=== PATIENT | female | born 1945 | race Caucasian/White ===

== ENCOUNTER → 2022-06-22 14:21 | Outpatient (CLI) | payer MEDICARE, OTHER, SELFPAY ==
[2022-06-22 15:31] LABS: Add Manual Diff / Slide Review NO; Basophils Absolute Auto 0 /uL (0-100); Basophils Percent Auto 0.2 % (0-2); Eosinophils Absolute Auto 100 /uL (0-450); Eosinophils Percent Auto 1.6 % (2-4); Hematocrit 31.4 % (36-46); Lymphocytes Absolute Auto 1000 /uL (1100-4500); Lymphocytes Percent Auto 15.9 % (25-40); Mean Corpuscular Hemoglobin 34.4 PG (26-34); Mean Corpuscular Volume 98.3 fL (80-100); Monocytes Absolute Auto 400 /uL (0-900); Monocytes Percent Auto 7.2 % (3-14); Neutrophils Absolute Auto 4600 /uL (1500-7000); Neutrophils Percent Auto 75.1 % (50-75); Platelet Count 310 X10^3/uL (150-400); Red Blood Cell Count 3.19 X10^6/uL (4.0-5.2); Red Cell Distribution Width 14.4 % (11.6-14.8); White Blood Cell Count 6.1 X10^3/uL (4.5-11.0)
[2022-06-22 15:35] LABS: Hemoglobin A1C% w Est Avg Glu 4.8 % (4.0-6.0)
[2022-06-22 16:10] LABS: BUN Creatinine Ratio 26.3 (6-22); Blood Urea Nitrogen 21 mg/dL (7-17); Calcium 8.6 mg/dL (8.4-10.2); Carbon Dioxide 30 mmol/L (22-32); Chloride 101 mmol/L (98-107); Cholesterol 193 mg/dL (140-199); Estimated Glomerular Filt Rate > 60 mL/min (>60); Glucose 79 mg/dL (80-110); HDL Cholesterol 60 mg/dL (40-60); HEMOLYSIS < 15 (0-50); LDL Cholesterol Calculated 77 mg/dL (<100); Potassium 3.7 mmol/L (3.4-5.1); Sodium 139 mmol/L (137-145); Triglycerides 279 mg/dL (35-150)
== END ==
PROVIDERS: PCP Family Medicine; Referring Provider Family Medicine; Visit Provider Family Medicine
DX: E78.5 Hyperlipidemia, unspecified (principal); F17.200 Nicotine dependence, unspecified, uncomplicated; I10 Essential (primary) hypertension; Z13.6 Encounter for screening for cardiovascular disorders; Z13.1 Encounter for screening for diabetes mellitus
CPT/HCPCS: 36415; 80048; 80061; 83036; 85025

== ENCOUNTER → 2023-06-22 14:21 | Outpatient (CLI) | payer MEDICARE, OTHER, SELFPAY ==
--- NOTE | 2023-06-22 14:25 | DI.MG.S_ITS ---
BILATERAL DIGITAL SCREENING MAMMOGRAM 3D/2D WITH CAD: 06/22/2023 CLINICAL: Routine screening. Baseline exam. No prior exams were available for comparison. Both breasts are heterogeneously dense, which may obscure small masses (category c / 51-75% glandular tissue). Current study was also evaluated with a Computer Aided Detection (CAD) system. No significant masses, calcifications, or other findings are seen in either breast. IMPRESSION: NEGATIVE There is no mammographic evidence of malignancy. A 1 year screening mammogram is recommended. Based on the Tyrer Cuzick model (a risk assessment model) the patient's lifetime risk is 5.9% and her 10 year risk is 5.9%. According to the ACR, ACS, and NCCN guidelines, an annual breast MRI exam along with mammogram is recommended if the patient's lifetime risk is 20% or greater. This exam was interpreted at Station ID: [id number]. NOTE: For mammograms, a report in lay terms will be sent to the patient. Approximately 15% of breast malignancies will not be visualized mammographically. In the management of a palpable breast mass, a negative mammogram must not discourage biopsy of a clinically suspicious lesion. Electronically Signed By: Chetna nice/darlene:06/22/2023 16:47:53 letter sent: Normal Exam ACR BI-RADS Category 1: Negative 3341F
[2023-06-22 18:09] LABS: Hematocrit 33.3 % (36-46); Hemoglobin 11.4 g/dL (12.0-16.0); Mean Corpuscular HGB Conc 34.3 % (30-36); Mean Corpuscular Hemoglobin 33.9 PG (26-34); Mean Corpuscular Volume 98.8 fL (80-100); Platelet Count 151 X10^3/uL (150-400); Red Blood Cell Count 3.37 X10^6/uL (4.0-5.2); White Blood Cell Count 6.5 X10^3/uL (4.5-11.0)
[2023-06-22 18:27] LABS: HEMOLYSIS < 15 (0-50); Iron 80 ug/dL (37-170)
[2023-06-22 18:38] LABS: Percent Iron Saturation 49 % (15-50); Total Iron Binding Capacity 164 ug/dL (265-497); Transferrin 152 mg/dL (206-381)
[2023-06-22 19:04] LABS: Ferritin 265 ng/mL (11-264)
[2023-06-22 21:47] LABS: Neutrophils Absolute Manual 5330 /uL (3000-5900); Total Cells Counted 100
[2023-06-22 21:52] LABS: RBC Morphology Normal Morphology
== END ==
PROVIDERS: PCP Family Medicine; Referring Provider Family Medicine; Visit Provider Family Medicine
DX: Z12.31 Encounter for screening mammogram for malignant neoplasm of breast (principal); R92.333 Mammographic heterogeneous density, bilateral breasts; D64.9 Anemia, unspecified
CPT/HCPCS: 36415; 77063; 77067; 82728; 83540; 83550; 85025

== ENCOUNTER → 2024-02-18 08:27 | Outpatient (CLI) | payer MEDICARE, OTHER, SELFPAY ==
[2024-02-18 09:33] LABS: Hematocrit 34.5 % (36-46); Hemoglobin 11.8 g/dL (12.0-16.0); Mean Corpuscular HGB Conc 34.2 % (30-36); Mean Corpuscular Hemoglobin 34.4 PG (26-34); Mean Corpuscular Volume 100.4 fL (80-100); Platelet Count 138 X10^3/uL (150-400); Red Blood Cell Count 3.43 X10^6/uL (4.0-5.2); Red Cell Distribution Width 13.9 % (11.6-14.8); White Blood Cell Count 5.9 X10^3/uL (4.5-11.0)
[2024-02-18 10:35] LABS: Alanine Aminotransferase 17 IU/L (<35); Albumin 3.9 g/dL (3.5-5.0); Albumin Globulin Ratio 1.2 (1.0-2.8); Alkaline Phosphatase 92 U/L (38-126); Aspartate Aminotransferase 31 IU/L (14-36); BUN Creatinine Ratio 16.7 (6-22); Bilirubin Total 0.4 mg/dL (0.2-1.3); Blood Urea Nitrogen 15 mg/dL (7-17); Calcium 9.2 mg/dL (8.4-10.2); Carbon Dioxide 25 mmol/L (22-32); Chloride 104 mmol/L (98-107); Cholesterol 246 mg/dL (140-199); Estimated Glomerular Filt Rate > 60 mL/min (>60); Globulin 3.3 g/dL (1.7-4.1); Glucose 79 mg/dL (80-110); HDL Cholesterol 82 mg/dL (40-60); HEMOLYSIS < 15 (0-50); LDL Cholesterol Calculated 118 mg/dL (<100); Potassium 4.2 mmol/L (3.4-5.1); Sodium 137 mmol/L (137-145); Total Protein 7.2 g/dL (6.3-8.2); Triglycerides 228 mg/dL (35-150)
== END ==
LOC: LAB 08:29
PROVIDERS: PCP Family Medicine; Referring Provider Family Medicine; Visit Provider Family Medicine
DX: Z00.00 Encounter for general adult medical examination without abnormal findings (principal); D64.9 Anemia, unspecified; E78.5 Hyperlipidemia, unspecified; F17.200 Nicotine dependence, unspecified, uncomplicated; I10 Essential (primary) hypertension
CPT/HCPCS: 36415; 80053; 80061; 85027

== ENCOUNTER 2024-07-10 18:21 | Inpatient (IN) | payer MEDICARE, OTHER, SELFPAY ==
[2024-07-10] VITALS (15 sets, daily range): BP systolic 151–193; BP diastolic 45–88; PULSE 53–76; RESP 16–18; TEMP 35.9; O2SAT 92–99; BMI 19.3; BMI 17.9
--- NOTE | 2024-07-10 | DI.RAD.S_ITS ---
PROCEDURE: XR CHEST 1V INDICATIONS: GLF with hip pain TECHNIQUE: One view of the chest was acquired. COMPARISON: None. FINDINGS: Surgical changes and devices: None. Lungs and pleura: Lungs are clear. No pleural effusions or pneumothorax. Mediastinum: Mediastinal contours appear normal. Heart size is normal. Bones and chest wall: No suspicious bony lesions. Overlying soft tissues appear unremarkable. IMPRESSION: No acute cardiopulmonary abnormality is seen. Dictated by: Kieran Hurst M.D. on 07/10/2024 at 18:58 Approved by: Kieran Hurst M.D. on 07/10/2024 at 18:58
--- NOTE | 2024-07-10 18:31 | DI.RAD.S_ITS ---
PROCEDURE: XR HIP W PEL IF DONE RT 2V INDICATIONS: shortened/ externally rotated TECHNIQUE: 2 views of the hip were acquired. COMPARISON: None. FINDINGS: Bones: Transcervical versus intratrochanteric fracture of the right femur, with mild angulation. Soft tissues: No suspicious soft tissue calcifications or masses. IMPRESSION: Transcervical versus intratrochanteric fracture of the right femur, with mild angulation. Dictated by: Kieran Hurst M.D. on 07/10/2024 at 18:57 Approved by: Kieran Hurst M.D. on 07/10/2024 at 18:58
--- NOTE | 2024-07-10 18:59 | EKG_ITS ---
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
--- NOTE | 2024-07-10 19:02 | ED.FALL ---
HPI - Fall General Chief Complaint: Fall Stated Complaint: GLF, right hip pain Time Seen by Provider: 07/10/24 18:59 Source: patient and EMS Mode of arrival: EMS Limitations: no limitations History of Present Illness HPI Narrative: 78-year-old female history of hypertension, dyslipidemia, tobacco use who was getting her dog's food ready when she tripped and landed on her right hip patient has pain with shortening and external rotation. She denies hitting her head, states only pain is in her right hip. Denies any other injuries. Denies any chest pain or shortness of breath. No neck pain. No back pain. No nausea or vomiting. No other GI or urinary symptoms denies any numbness or tingling. She has had prior thumb surgery when it was caught off it was re-attached. She states she does smoke daily, drinks a glass of alcohol daily, no recreational drugs. Dr. Bourne as her primary care physician. Related Data Home Medications Medication Instructions Recorded Confirmed famotidine 20 mg tablet (Pepcid AC) 20 mg PO DAILY 05/18/22 06/26/24 ibuprofen-diphenhydramine citrate 1 cap PO BEDTIME 05/18/22 06/26/24 200 mg-38 mg tablet (Advil PM) atorvastatin 20 mg tablet 20 mg PO QPM cholesterol 06/26/24 06/26/24 Previous Rx's Medication Instructions Recorded metoprolol succinate 100 mg 100 mg PO BID blood pressure #180 11/15/23 tablet,extended release 24 hr tabs terazosin 2 mg capsule 2 mg PO DAILY blood pressure #90 12/29/23 caps amlodipine 10 mg tablet 10 mg PO DAILY blood pressure #90 05/02/24 tabs olmesartan 40 mg tablet 40 mg PO DAILY blood pressure #90 05/02/24 tabs Allergies Allergy/AdvReac Type Severity Reaction Status Date / Time No Known Drug Allergies Allergy Unverified 06/26/24 15:06 Review of Systems Review of Systems ROS Unobtainable: All systems reviewed & are unremarkable except as noted in HPI and below Patient History Medical History Encounter for initial annual wellness visit (AWV) in Medicare patient Normocytic anemia Hyperlipidemia Tobacco dependence Benign essential HTN Measles Cataracts, bilateral (~2015) Family History Father Cancer Social History Smoking Status: Current every day smoker Smoking Status: Current every day smoker tobacco type: cigarettes Alcohol type: wine Exam Narrative Exam Narrative: GENERAL: Alert and oriented x three, elderly female in mild distress HEENT: Head normocephalic, atraumatic, EOMI, pupils reactive, face symmetric, moist mucous membranes NECK: Supple, full range of motion, no cervical vertebral tenderness. CARDIOVASCULAR: Regular rate and rhythm without murmurs, rubs or gallops. RESPIRATORY: Breath sounds equal bilaterally, no wheezes rales or rhonchi. ABDOMEN: Soft, nontender. Normoactive bowel sounds all 4 quadrants. No guarding or rebound, rigidity, no mass : No CVA tenderness EXTREMITIES: Patient has tenderness over the right hip with external rotation and shortening, no other bony tenderness of the right lower extremity. 2+ pulses bilaterally. Sensation to bilateral lower extremities. No clubbing or edema. Neurovascularly intact NEUROLOGICAL: Cranial nerves II through XII grossly intact. Moving all extremities SKIN: Warm, dry, no petechiae, no rashes or lesions. Initial Vital Signs Initial Vital Signs: Vital Signs Pulse Rate 68 07/10/24 18:25 Pulse Oximetry 96 07/10/24 18:25 Course Orders Ordered: ED Orders 07/10/24 18:31 XR hip w pel if done RT 2V Stat 07/10/24 18:59 EKG-12 Lead Stat 07/10/24 19:25 Consult to Orthopedic Surgery Stat 07/10/24 19:36 CBC Auto Diff [Complete Blood Count AUTO DIFF] Stat CMP [Comprehensive Metabolic Panel] Stat Prothrombin Time INR Stat 07/10/24 19:48 Type and Screen Stat Hydrocodone Bitart/Acetaminophen (Hydrocodone/Acet 5/325 Tablet) 1 tab PO Q6HR PRN PRN Reason: Pain, Moderate (4-6) Dextrose/Sodium Chloride (Dextrose 5%-0.9% Ns) 1,000 mls @ 75 mls/hr IV CONT LILIANA Discontinued Medications Hydromorphone HCl (Hydromorphone 1 Mg Inj) 1 mg IV NOW ONE Stop: 07/10/24 20:35 Last Admin: 07/10/24 20:38 Dose: 1 mg Documented By: ABBI Morphine Sulfate (Morphine 4 Mg/Ml Inj) 4 mg IV NOW ONE Stop: 07/10/24 19:26 Last Admin: 07/10/24 19:35 Dose: 4 mg Documented By: ABBI Vital Signs Vital signs: Vital Signs - 8 hr 07/10/24 18:25 07/10/24 18:26 07/10/24 18:27 Pulse Rate 68 60 61 Respiratory Rate 18 Blood Pressure 193/77 H Pulse Oximetry 96 99 99 Oxygen Delivery Method Room Air 07/10/24 18:27 07/10/24 18:30 07/10/24 18:31 Pulse Rate 58 L 58 L Respiratory Rate Blood Pressure 193/77 H Pulse Oximetry 99 99 Oxygen Delivery Method 07/10/24 18:31 07/10/24 19:00 07/10/24 19:30 Pulse Rate 60 62 Respiratory Rate 16 Blood Pressure 191/88 H Pulse Oximetry 98 97 Oxygen Delivery Method 07/10/24 20:00 07/10/24 20:30 07/10/24 21:00 Pulse Rate 62 68 62 Respiratory Rate Blood Pressure Pulse Oximetry 99 94 92 Oxygen Delivery Method MDM - Fall Lab Data 07/10/24 19:36 07/10/24 19:36 Labs: Lab Results 07/10/24 07/10/24 Range/Units 19:36 19:48 WBC 9.8 (4.5-11.0) X10^3/uL RBC 3.54 L (4.0-5.2) X10^6/uL Hgb 11.3 L (12.0-16.0) g/dL Hct 33.8 L (36-46) % MCV 95.3 (80-100) fL MCH 31.9 (26-34) PG MCHC 33.5 (30-36) % RDW 15.4 H (11.6-14.8) % Plt Count 170 (150-400) X10^3/uL Neut % (Auto) 84.7 H (50-75) % Lymph % (Auto) 7.1 L (25-40) % [place] % (Auto) 6.4 (3-14) % Eos % (Auto) 0.9 L (2-4) % Baso % (Auto) 0.9 (0-2) % Neut # (Auto) 8300 H (2711-9901) /uL Lymph # (Auto) 700 L (1883-7098) /uL [place] # (Auto) 600 (0-900) /uL Eos # (Auto) 100 (0-450) /uL Baso # (Auto) 100 (0-100) /uL PT 11.5 (9.4-12.5) SECONDS INR 1.0 (0.9-1.3) Sodium 136 L (137-145) mmol/L Potassium 3.7 (3.4-5.1) mmol/L Chloride 103 (98-107) mmol/L Carbon Dioxide 27 (22-32) mmol/L BUN 16 (7-17) mg/dL Creatinine 0.91 (0.52-1.04) mg/dL Estimated GFR > 60 (>60) mL/min BUN/Creatinine Ratio 17.6 (6-22) Glucose 109 (80-110) mg/dL Calcium 9.3 (8.4-10.2) mg/dL Total Bilirubin 0.6 (0.2-1.3) mg/dL AST 43 H (14-36) IU/L ALT 28 (<35) IU/L Alkaline Phosphatase 105 (38-126) U/L Total Protein 7.8 (6.3-8.2) g/dL Albumin 4.2 (3.5-5.0) g/dL Globulin 3.6 (1.7-4.1) g/dL Albumin/Globulin Ratio 1.2 (1.0-2.8) Blood Type A Negative Antibody Screen Negative ECG Data Attestation: I personally reviewed and interpreted this ECG as follows: Interpretation: Sinus rhythm rate of 71 IA 170 QRS is [address] elevation depression. [facility] Narrative Medical decision making narrative: 78-year-old female with reported mechanical ground level fall. Patient has fracture of her right hip. Denies hitting her head or any headache, neck or back pain. Patient has been hypertensive this evening. Hip x-ray shows transcervical versus intertrochanteric fracture of the right femur Chest x-ray with mild angulation shows no acute cardiopulmonary change. Labs white count of 9.8 hemoglobin 11.3 appears consistent with priors last month. Platelets are 170. INR is 1, sodium is 136 electrolytes are otherwise appropriate BUN creatinine are normal AST is 43 ALT bilirubin and alk-phos are normal. EKG shows no acute change. Spoke with Dr. Verduzco, orthopedic surgery. Plan for surgical repair tomorrow, NPO tonight asked for admission to the hospitalist. Spoke with tele hospitalist Dr. Harvey, accepts for inpatient asked that we place patient on D5 NS at 75 mL/hour for maintenance, [place] q.6 hours PRN so she can have a dose this evening prior to being NPO after midnight. Discharge Plan Departure Patient Disposition: Admitted As Inpatient Clinical Impression: Closed hip fracture Admit Date/Time: 07/10/24 21:22 Admit Provider: Yara Harvey
[2024-07-10] MEDS: MORPHINE 4 MG/ML INJ IV (19:35)
[2024-07-10 19:47] LABS: Add Manual Diff / Slide Review NO; Basophils Absolute Auto 100 /uL (0-100); Basophils Percent Auto 0.9 % (0-2); Eosinophils Absolute Auto 100 /uL (0-450); Eosinophils Percent Auto 0.9 % (2-4); Hematocrit 33.8 % (36-46); Hemoglobin 11.3 g/dL (12.0-16.0); Lymphocytes Absolute Auto 700 /uL (1100-4500); Lymphocytes Percent Auto 7.1 % (25-40); Mean Corpuscular HGB Conc 33.5 % (30-36); Mean Corpuscular Hemoglobin 31.9 PG (26-34); Mean Corpuscular Volume 95.3 fL (80-100); Monocytes Absolute Auto 600 /uL (0-900); Monocytes Percent Auto 6.4 % (3-14); Neutrophils Absolute Auto 8300 /uL (1500-7000); Neutrophils Percent Auto 84.7 % (50-75); Platelet Count 170 X10^3/uL (150-400); Red Blood Cell Count 3.54 X10^6/uL (4.0-5.2); Red Cell Distribution Width 15.4 % (11.6-14.8); White Blood Cell Count 9.8 X10^3/uL (4.5-11.0)
[2024-07-10 19:54] LABS: Prothrombin Time 11.5 SECONDS (9.4-12.5)
[2024-07-10 19:57] LABS: Alanine Aminotransferase 28 IU/L (<35); Albumin 4.2 g/dL (3.5-5.0); Albumin Globulin Ratio 1.2 (1.0-2.8); Alkaline Phosphatase 105 U/L (38-126); Aspartate Aminotransferase 43 IU/L (14-36); BUN Creatinine Ratio 17.6 (6-22); Bilirubin Total 0.6 mg/dL (0.2-1.3); Blood Urea Nitrogen 16 mg/dL (7-17); Calcium 9.3 mg/dL (8.4-10.2); Carbon Dioxide 27 mmol/L (22-32); Chloride 103 mmol/L (98-107); Estimated Glomerular Filt Rate > 60 mL/min (>60); Globulin 3.6 g/dL (1.7-4.1); Glucose 109 mg/dL (80-110); HEMOLYSIS < 15 (0-50); Potassium 3.7 mmol/L (3.4-5.1); Sodium 136 mmol/L (137-145); Total Protein 7.8 g/dL (6.3-8.2)
[2024-07-10] MEDS: HYDROMORPHONE 1 MG INJ IV (20:38)
--- NOTE | 2024-07-10 22:08 | ED.FALL ---
HPI - Fall General Chief Complaint: Fall Stated Complaint: GLF, right hip pain Time Seen by Provider: 07/10/24 18:59 Source: patient and EMS Mode of arrival: EMS Limitations: no limitations History of Present Illness HPI Narrative: 78 y/o F, with h/o HTN, HLD, GERD, was in her usual state of health, not on bloodthinners, had a fall today , while she She fell on her R side, did not hit her head, and remained conscious through out. Noted R hip pain and unable to bear wt on her R hip. Denies CP, SOB, Abd Pain, Dysuria, F/C, cough, light headedness or syncope. In ED, had SBP up at 193, rest of Vitals were stable Dr Verduzco / Ortho was consulted per ED Provider, and plan is NPO after mn, for surgery on R hip uin the morning. Pt recd Fentanyl enroute, and in ED one dose of Morphine and one dose of IV dilaudid. She was referred to Hospitalist team for admission. Related Data Home Medications Medication Instructions Recorded Confirmed atorvastatin 40 mg tablet 40 mg PO DAILY 07/10/24 07/10/24 olmesartan 40 mg tablet 40 mg PO DAILY blood pressure 07/10/24 07/10/24 Previous Rx's Medication Instructions Recorded metoprolol succinate 100 mg 100 mg PO BID blood pressure #180 11/15/23 tablet,extended release 24 hr tabs terazosin 2 mg capsule 2 mg PO DAILY blood pressure #90 12/29/23 caps amlodipine 10 mg tablet 10 mg PO DAILY blood pressure #90 05/02/24 tabs Allergies Allergy/AdvReac Type Severity Reaction Status Date / Time No Known Drug Allergies Allergy Unverified 06/26/24 15:06 Review of Systems Review of Systems ROS Unobtainable: All systems reviewed & are unremarkable except as noted in HPI and below Patient History Medical History Encounter for initial annual wellness visit (AWV) in Medicare patient Normocytic anemia Hyperlipidemia Tobacco dependence Benign essential HTN Measles Cataracts, bilateral (~2015) Family History Father Cancer Social History Smoking Status: Current every day smoker Smoking Status: Current every day smoker tobacco type: cigarettes Alcohol type: wine Exam Initial Vital Signs Initial Vital Signs: Vital Signs Pulse Rate 68 07/10/24 18:25 Pulse Oximetry 96 07/10/24 18:25 Course Orders Ordered: ED Orders 07/10/24 18:31 XR hip w pel if done RT 2V Stat 07/10/24 18:59 EKG-12 Lead Stat 07/10/24 19:25 Consult to Orthopedic Surgery Stat 07/10/24 19:36 CBC Auto Diff [Complete Blood Count AUTO DIFF] Stat CMP [Comprehensive Metabolic Panel] Stat Prothrombin Time INR Stat 07/10/24 19:48 Type and Screen Stat Acetaminophen (Acetaminophen 325 Mg Tablet) 650 mg PO Q6H PRN PRN Reason: Fever/Mild Pain (1-3) Hydrocodone Bitart/Acetaminophen (Hydrocodone/Acet 5/325 Tablet) 1 tab PO Q6HR PRN PRN Reason: Pain, Moderate (4-6) Atorvastatin Calcium (Atorvastatin 20 Mg Tablet) 20 mg PO QPM LILIANA Famotidine (Famotidine 20 Mg Tablet) 20 mg PO DAILY LILIANA Hydromorphone HCl (Hydromorphone 0.5 Mg Inj) 0.5 mg IV Q3H PRN PRN Reason: Pain, Severe (7-10) Dextrose/Sodium Chloride (Dextrose 5%-0.9% Ns) 1,000 mls @ 75 mls/hr IV CONT LILIANA Metoprolol Succinate (Metoprolol Er 50 Mg Tablet) 100 mg PO DAILY [facility] Naloxone HCl (Naloxone 0.4 Mg/Ml Vial) 0.2 mg IV Q2MIN PRN PRN Reason: Opiate Reversal Ondansetron HCl (Ondansetron 4 Mg/2 Ml Inj) 4 mg IV Q4HR [facility] Discontinued Medications Hydromorphone HCl (Hydromorphone 1 Mg Inj) 1 mg IV NOW ONE Stop: 07/10/24 20:35 Last Admin: 07/10/24 20:38 Dose: 1 mg Documented By: ABBI Morphine Sulfate (Morphine 4 Mg/Ml Inj) 4 mg IV NOW ONE Stop: 07/10/24 19:26 Last Admin: 07/10/24 19:35 Dose: 4 mg Documented By: ABBI Vital Signs Vital signs: Vital Signs - 8 hr 07/10/24 18:25 07/10/24 18:26 07/10/24 18:27 Pulse Rate 68 60 61 Respiratory Rate 18 Blood Pressure 193/77 H Pulse Oximetry 96 99 99 Oxygen Delivery Method Room Air 07/10/24 18:27 07/10/24 18:30 07/10/24 18:31 Pulse Rate 58 L 58 L Respiratory Rate Blood Pressure 193/77 H Pulse Oximetry 99 99 Oxygen Delivery Method 07/10/24 18:31 07/10/24 19:00 07/10/24 19:30 Pulse Rate 60 62 Respiratory Rate 16 Blood Pressure 191/88 H Pulse Oximetry 98 97 Oxygen Delivery Method 07/10/24 20:00 07/10/24 20:30 07/10/24 21:00 Pulse Rate 62 68 62 Respiratory Rate Blood Pressure Pulse Oximetry 99 94 92 Oxygen Delivery Method MDM - Fall Lab Data 07/10/24 19:36 07/10/24 19:36 Labs: Lab Results 07/10/24 07/10/24 Range/Units 19:36 19:48 WBC 9.8 (4.5-11.0) X10^3/uL RBC 3.54 L (4.0-5.2) X10^6/uL Hgb 11.3 L (12.0-16.0) g/dL Hct 33.8 L (36-46) % MCV 95.3 (80-100) fL MCH 31.9 (26-34) PG MCHC 33.5 (30-36) % RDW 15.4 H (11.6-14.8) % Plt Count 170 (150-400) X10^3/uL Neut % (Auto) 84.7 H (50-75) % Lymph % (Auto) 7.1 L (25-40) % [place] % (Auto) 6.4 (3-14) % Eos % (Auto) 0.9 L (2-4) % Baso % (Auto) 0.9 (0-2) % Neut # (Auto) 8300 H (5278-2034) /uL Lymph # (Auto) 700 L (3353-3042) /uL [place] # (Auto) 600 (0-900) /uL Eos # (Auto) 100 (0-450) /uL Baso # (Auto) 100 (0-100) /uL PT 11.5 (9.4-12.5) SECONDS INR 1.0 (0.9-1.3) Sodium 136 L (137-145) mmol/L Potassium 3.7 (3.4-5.1) mmol/L Chloride 103 (98-107) mmol/L Carbon Dioxide 27 (22-32) mmol/L BUN 16 (7-17) mg/dL Creatinine 0.91 (0.52-1.04) mg/dL Estimated GFR > 60 (>60) mL/min BUN/Creatinine Ratio 17.6 (6-22) Glucose 109 (80-110) mg/dL Calcium 9.3 (8.4-10.2) mg/dL Total Bilirubin 0.6 (0.2-1.3) mg/dL AST 43 H (14-36) IU/L ALT 28 (<35) IU/L Alkaline Phosphatase 105 (38-126) U/L Total Protein 7.8 (6.3-8.2) g/dL Albumin 4.2 (3.5-5.0) g/dL Globulin 3.6 (1.7-4.1) g/dL Albumin/Globulin Ratio 1.2 (1.0-2.8) Blood Type A Negative Antibody Screen Negative Discharge Plan Departure Patient Disposition: Admitted As Inpatient Clinical Impression: Closed hip fracture
[2024-07-10] MEDS: HYDROMORPHONE 0.5 MG INJ IV (22:24)
[2024-07-10] MEDS: DEXTROSE 5%-0.9% NS 1,000 ML 75 ML IV (22:41)
--- NOTE | 2024-07-10 22:45 | PM.HP.1 ---
History of Present Illness History of Present Illness Date Patient Seen: 07/10/24 Date of Onset of Symptoms: 07/10/24 Chief complaint: GLF, right hip pain Narrative: 78 y/o F, with h/o HTN, HLD, GERD, was in her usual state of health, not on blood thinners, had a fall today , this afternoon, after she had fed her dog, she was trying to reach the recycling bin,m and she tripped on the kitchen mat by the sink. She fell on her R side, did not hit her head, and remained conscious through out. Noted R hip pain and unable to bear wt on her R hip. Denies CP, SOB, Abd Pain, Dysuria, F/C, cough, light headedness or syncope. Denies h/o RI, Stroke, CHF, DM or PE Her son with whom pt has been staying , called EMS, and pt transported to ED. In ED, had SBP up at 193, rest of Vitals were stable R Hip XR: Trans cervical vs Intratrochanteric fracture of R femur with mild angulation Labs indicate chronic anemia HH 11.3/33.8 Rest of lab unremarkable Dr Verduzco / Ortho was consulted per ED Provider, and plan is NPO after mn, for surgery on R hip uin the morning. Pt recd Fentanyl enroute, and in ED one dose of Morphine and one dose of IV dilaudid. She was referred to Hospitalist team for admission. [facility] Medical History Uncontrolled hypertension Encounter for initial annual wellness visit (AWV) in Medicare patient Normocytic anemia Hyperlipidemia Tobacco dependence Benign essential HTN Measles Cataracts, bilateral (~2015) Family History Father Cancer Social History household members: spouse Smoking Status: Current every day smoker alcohol intake: current Meds Home Medications and Allergies Home Medications Medication Instructions Recorded Confirmed Type metoprolol succinate 100 mg 100 mg PO BID blood pressure #180 11/15/23 07/10/24 Rx tablet,extended release 24 hr tabs terazosin 2 mg capsule 2 mg PO DAILY blood pressure #90 12/29/23 07/10/24 Rx caps amlodipine 10 mg tablet 10 mg PO DAILY blood pressure #90 05/02/24 07/10/24 Rx tabs atorvastatin 40 mg tablet 40 mg PO DAILY 07/10/24 07/10/24 History olmesartan 40 mg tablet 40 mg PO DAILY blood pressure 07/10/24 07/10/24 History Allergies Allergy/AdvReac Type Severity Reaction Status Date / Time No Known Drug Allergies Allergy Unverified 06/26/24 15:06 Review of Systems Review of Systems ROS: Yes All systems reviewed with the patient and are negative except as otherwise documented Exam Vital Signs (past 8 hours): - 07/10/24 18:25 07/10/24 18:26 07/10/24 18:27 Temperature Pulse Rate 68 60 61 Respiratory Rate 18 Blood Pressure 193/77 H Pulse Oximetry 96 99 99 Oxygen Delivery Method Room Air Oxygen Flow Rate 07/10/24 18:27 07/10/24 18:30 07/10/24 18:31 Temperature Pulse Rate 58 L 58 L Respiratory Rate Blood Pressure 193/77 H Pulse Oximetry 99 99 Oxygen Delivery Method Oxygen Flow Rate 07/10/24 18:31 07/10/24 19:00 07/10/24 19:30 Temperature Pulse Rate 60 62 Respiratory Rate 16 Blood Pressure 191/88 H Pulse Oximetry 98 97 Oxygen Delivery Method Oxygen Flow Rate 07/10/24 20:00 07/10/24 20:30 07/10/24 21:00 Temperature Pulse Rate 62 68 62 Respiratory Rate Blood Pressure Pulse Oximetry 99 94 92 Oxygen Delivery Method Oxygen Flow Rate 07/10/24 21:30 07/10/24 22:00 Temperature 96.7 F L Pulse Rate 64 62 Respiratory Rate 16 18 Blood Pressure 158/70 H 163/60 H Pulse Oximetry 92 96 Oxygen Delivery Method Oxygen Flow Rate 0 Oxygen Delivery Method Room Air Oxygen Flow Rate 0 Narrative Exam Narrative: Patient is laying in bed, in no acute distress. Has some R hip pain jael with movement of R hip joint. HEENT: AT, NC EOMI, PERRL, non icteric sclerae, Conjuntivae are WNL Neck : supple, no TMG, no adenopathy Chest : CTA , BS Equal bilat, normal resp effort, no W/Rales or Rhonchi. Heart: RRR , no M/G/R Abd: soft , NT, ND , No HSM,. BS present and WNL Ext: no edema, or cyanosis. pp 2 + bilat symmetric. no calf tyenderness. RLE is shortened. Ski warm and dry, n: no rash, no bruising Neuro: A and O x 4, non focal Psyche: Pleasant, cooperative, Mood is WNL Objective Labs 07/10/24 19:36 07/10/24 19:36 Labs: Laboratory Results - last 24 hr 07/10/24 07/10/24 19:36 19:48 WBC 9.8 RBC 3.54 L Hgb 11.3 L Hct 33.8 L MCV 95.3 MCH 31.9 MCHC 33.5 RDW 15.4 H Plt Count 170 Neut % (Auto) 84.7 H Lymph % (Auto) 7.1 L [place] % (Auto) 6.4 Eos % (Auto) 0.9 L Baso % (Auto) 0.9 Neut # (Auto) 8300 H Lymph # (Auto) 700 L [place] # (Auto) 600 Eos # (Auto) 100 Baso # (Auto) 100 PT 11.5 INR 1.0 Sodium 136 L Potassium 3.7 Chloride 103 Carbon Dioxide 27 BUN 16 Creatinine 0.91 Estimated GFR > 60 BUN/Creatinine Ratio 17.6 Glucose 109 Calcium 9.3 Total Bilirubin 0.6 AST 43 H ALT 28 Alkaline Phosphatase 105 Total Protein 7.8 Albumin 4.2 Globulin 3.6 Albumin/Globulin Ratio 1.2 Blood Type A Negative Antibody Screen Negative Assessment & Plan Assessment and plan (1) Closed hip fracture: Problem details: Has Surgery in the morning , no pharmacologic VTE px Qualifiers: Encounter type: initial encounter Laterality: right Qualified Code(s): S72.001A - Fracture of unspecified part of neck of right femur, initial encounter for closed fracture Status: Acute (2) Uncontrolled hypertension: Problem details: Has h/o HTN and takes anti HTN meds at home Increase in SBP likely sec to R hip pain Shall continue Metoprolol 100 mg BID, give pm dose now Hold ARB ( as R hip Surgery in the morning) avoid Intra op[erative and post op Hypotension Status: Acute (3) Right femoral fracture: Problem details: GLF resulting in R femoral Fracture Transcervical vs Intertrochanteric Fracture of R femur, with mild angulation Ortho Dr Verduzco Consulted 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 NPO after mn as advised per Ortho [place] Pain control [place] q 4 h prn Dilaudid 0.5 mg IV q 3 hrs prn Keep O2 sats > 93% SCDS Ho;ld Pharmacologic DVT px given surgery in the morning PT / OT consult Qualifiers: Encounter type: initial encounter Femur location: intertrochanteric Fracture alignment: nondisplaced Fracture type: closed Qualified Code(s): S72.144A - Nondisplaced intertrochanteric fracture of right femur, initial encounter for closed fracture Status: Acute (4) Hyperlipidemia: Problem details: Hsas h/o HLD Takes Atorvastatin 40 mg po daily, continue same Qualifiers: Hyperlipidemia type: mixed hyperlipidemia Qualified Code(s): E78.2 - Mixed hyperlipidemia Status: Acute Time-Based Coding :: [TOTAL MINUTES] spent with patient and on the chart (including review of chart, obtaining history, exam, reviewing outside data, placing orders, documenting exam and treatment plan, and counseling patient) on [DATE]. Quality VTE Deep Vein Thrombosis/Pulmonary Embolism Present on Admission: No
[2024-07-10 23:17] LABS: Appearance Urine UA CLOUDY; Bilirubin Urine UA NEGATIVE (NEGATIVE); Color Urine UA YELLOW; Glucose Urine UA NEGATIVE (Negative); Ketones Urine UA NEGATIVE (NEGATIVE); Leukocyte Esterase Urine UA NEGATIVE (NEGATIVE); Nitrite Urine UA POSITIVE (Negative); Occult Blood Urine UA NEGATIVE (Negative); Protein Urine UA TRACE (Negative); Specific Gravity Urine UA 1.015 (1.000-1.035); Urobilinogen Urine UA 0.2 E.U./dL (0.2)
[2024-07-10 23:35] LABS: Bacteria Urine Many (>30); Culture Indicated Urine Specimen Cultured; RBC Urine 0-1/HPF (0-5/HPF); Squamous Epithelial Cell Urine 0-1 /HPF (0-5/HPF); Urine Volume 10mL (spun); WBC Urine 5-10/HPF (0-5/HPF)
[2024-07-10] MEDS: METOPROLOL ER 50 MG TABLET 100 MG PO (23:53)
[2024-07-10] MEDS: ATORVASTATIN 20 MG TABLET 40 MG PO (23:55)
[2024-07-11] VITALS (11 sets, daily range): BP systolic 139–168; BP diastolic 62–78; PULSE 54–77; RESP 15–18; TEMP 35.7–36.2; O2SAT 92–97
[2024-07-11] MEDS: HYDROMORPHONE 0.5 MG INJ IV ×2 (03:54→07:37)
[2024-07-11 05:49] LABS: Add Manual Diff / Slide Review NO; Basophils Absolute Auto 0 /uL (0-100); Basophils Percent Auto 0.5 % (0-2); Eosinophils Absolute Auto 100 /uL (0-450); Eosinophils Percent Auto 1.4 % (2-4); Hematocrit 32.6 % (36-46); Lymphocytes Absolute Auto 800 /uL (1100-4500); Lymphocytes Percent Auto 11.1 % (25-40); Mean Corpuscular HGB Conc 33.6 % (30-36); Mean Corpuscular Hemoglobin 32.1 PG (26-34); Mean Corpuscular Volume 95.5 fL (80-100); Monocytes Absolute Auto 700 /uL (0-900); Monocytes Percent Auto 9.3 % (3-14); Neutrophils Absolute Auto 5800 /uL (1500-7000); Neutrophils Percent Auto 77.7 % (50-75); Platelet Count 151 X10^3/uL (150-400); Red Blood Cell Count 3.41 X10^6/uL (4.0-5.2); Red Cell Distribution Width 15.2 % (11.6-14.8); White Blood Cell Count 7.4 X10^3/uL (4.5-11.0)
[2024-07-11 06:02] LABS: BUN Creatinine Ratio 15.1 (6-22); Blood Urea Nitrogen 11 mg/dL (7-17); Carbon Dioxide 29 mmol/L (22-32); Chloride 103 mmol/L (98-107); Estimated Glomerular Filt Rate > 60 mL/min (>60); Glucose 147 mg/dL (80-110); HEMOLYSIS < 15 (0-50); Potassium 3.9 mmol/L (3.4-5.1); Sodium 138 mmol/L (137-145)
--- NOTE | 2024-07-11 07:02 | P.PN_ITS ---
Subjective Subjective Interval history: From night doctor: 78 y/o F, with h/o HTN, HLD, GERD, was in her usual state of health, not on blood thinners, had a fall today , this afternoon, after she had fed her dog, she was trying to reach the recycling bin,m and she tripped on the kitchen mat by the sink. She fell on her R side, did not hit her head, and remained conscious through out. Noted R hip pain and unable to bear wt on her R hip. Denies CP, SOB, Abd Pain, Dysuria, F/C, cough, light headedness or syncope. Denies h/o OH, Stroke, CHF, DM or PE Her son with whom pt has been staying , called EMS, and pt transported to ED. In ED, had SBP up at 193, rest of Vitals were stable R Hip XR: Trans cervical vs Intratrochanteric fracture of R femur with mild angulation Labs indicate chronic anemia HH 11.3/33.8 Rest of lab unremarkable Dr Verduzco / Ortho was consulted per ED Provider, and plan is NPO after mn, for surgery on R hip uin the morning. Pt recd Fentanyl enroute, and in ED one dose of Morphine and one dose of IV dilaudid. She was referred to Hospitalist team for admission. S: She was good pain control. She was placed on oxygen but denies dyspnea, or recent cough. She also denies urinary symptoms including dysuria. She lives locally with her . Her surgery has been delayed till morning, she was not given a diet. Exam Vital Signs (past 8 hours): - 07/10/24 23:31 07/10/24 23:53 07/11/24 00:00 Temperature 96.7 F L Pulse Rate 53 L 76 73 Respiratory Rate 18 Blood Pressure 151/45 H 151/66 H Pulse Oximetry 95 94 Oxygen Delivery Method Nasal Cannula Oxygen Flow Rate 1 1 Fraction of Inspired Oxygen 24 07/11/24 01:14 07/11/24 04:00 07/11/24 05:46 Temperature 96.3 F L Pulse Rate 77 64 Respiratory Rate 18 Blood Pressure 149/78 H Pulse Oximetry 95 95 Oxygen Delivery Method Nasal Cannula Oxygen Flow Rate 1 1 Fraction of Inspired Oxygen Fraction of Inspired Oxygen 24 SaO2/FiO2 Ratio 395 Oxygen Delivery Method Nasal Cannula Oxygen Flow Rate 1 Narrative Exam Narrative: NAD, alert and oriented. Fluent speech. Lungs are clear, normal rate and effort. Heart is regular, no murmur gallop or rub. Abdomen is soft, non distended. Extremities are free of edema. Objective ECG Impression: Normal sinus rhythm Imaging Hip X-ray: : Radiologist's impression: Hip x-ray shows transcervical versus intertrochanteric fracture of the right femur Chest x-ray: Radiologist's impression: Chest x-ray with mild angulation shows no acute cardiopulmonary change. Labs 07/11/24 05:15 07/11/24 05:15 Labs: Laboratory Results - last 24 hr 07/10/24 07/10/24 07/10/24 19:36 19:46 19:48 WBC 9.8 RBC 3.54 L Hgb 11.3 L Hct 33.8 L MCV 95.3 MCH 31.9 MCHC 33.5 RDW 15.4 H Plt Count 170 Neut % (Auto) 84.7 H Lymph % (Auto) 7.1 L [place] % (Auto) 6.4 Eos % (Auto) 0.9 L Baso % (Auto) 0.9 Neut # (Auto) 8300 H Lymph # (Auto) 700 L [place] # (Auto) 600 Eos # (Auto) 100 Baso # (Auto) 100 PT 11.5 INR 1.0 Sodium 136 L Potassium 3.7 Chloride 103 Carbon Dioxide 27 BUN 16 Creatinine 0.91 Estimated GFR > 60 BUN/Creatinine Ratio 17.6 Glucose 109 Calcium 9.3 Total Bilirubin 0.6 AST 43 H ALT 28 Alkaline Phosphatase 105 Total Protein 7.8 Albumin 4.2 Globulin 3.6 Albumin/Globulin Ratio 1.2 Urine Color Yellow Urine Appearance Cloudy Urine pH 6.0 Ur Specific [place] 1.015 Urine Protein Trace H Urine Glucose (UA) Negative Urine Ketones Negative Urine Occult Blood Negative Urine Nitrate Positive H Urine Bilirubin Negative Urine Urobilinogen 0.2 Ur Leukocyte Esterase Negative Urine RBC 0-1/hpf Urine WBC 5-10/hpf H Ur Squamous Epith Cells 0-1 /hpf Urine Bacteria Many (>30) H Ur Culture Indicated? Specimen cultured Vol Urine Centrifuged 10ml (spun) Blood Type A Negative Antibody Screen Negative 07/11/24 05:15 WBC 7.4 RBC 3.41 L Hgb 11.0 L Hct 32.6 L MCV 95.5 MCH 32.1 MCHC 33.6 RDW 15.2 H Plt Count 151 Neut % (Auto) 77.7 H Lymph % (Auto) 11.1 L [place] % (Auto) 9.3 Eos % (Auto) 1.4 L Baso % (Auto) 0.5 Neut # (Auto) 5800 Lymph # (Auto) 800 L [place] # (Auto) 700 Eos # (Auto) 100 Baso # (Auto) 0 PT INR Sodium 138 Potassium 3.9 Chloride 103 Carbon Dioxide 29 BUN 11 Creatinine 0.73 Estimated GFR > 60 BUN/Creatinine Ratio 15.1 Glucose 147 H Calcium 9.0 Total Bilirubin AST ALT Alkaline Phosphatase Total Protein Albumin Globulin Albumin/Globulin Ratio Urine Color Urine Appearance Urine pH Ur Specific [place] Urine Protein Urine Glucose (UA) Urine Ketones Urine Occult Blood Urine Nitrate Urine Bilirubin Urine Urobilinogen Ur Leukocyte Esterase Urine RBC Urine WBC Ur Squamous Epith Cells Urine Bacteria Ur Culture Indicated? Vol Urine Centrifuged Blood Type Antibody Screen [facility] Medical History Uncontrolled hypertension Encounter for initial annual wellness visit (AWV) in Medicare patient Normocytic anemia Hyperlipidemia Tobacco dependence Benign essential HTN Measles Cataracts, bilateral (~2015) Family History Father Cancer Social History household members: spouse Smoking Status: Current every day smoker alcohol intake: current Assessment & Plan Assessment & Plan narrative: 1. Closed hip fracture (right), present on admission and active. 2. Uncontrolled hypertension, present on admission and active. Increase in SBP likely sec to R hip pain. Continue Metoprolol 100 mg BID, give pm dose now. 3. Hyperlipidemia, present on admission and stable. Takes Atorvastatin 40 mg po daily. 4. Possible acute hypoxic respiratory failure, new and active. PLAN: -surgery delayed due to capacity ( AM). -Pain medications. -Heparin SQ for DVT prophylaxis. -IS and wean O2 as able. -NPO Wednesday at Midnight. Time-Based Coding :: [TOTAL MINUTES] spent with patient and on the chart (including review of chart, obtaining history, exam, reviewing outside data, placing orders, documenting exam and treatment plan, and counseling patient) on [DATE]. Quality VTE Deep Vein Thrombosis/Pulmonary Embolism Present on Admission: No
[2024-07-11] MEDS: METOPROLOL ER 50 MG TABLET 100 MG PO (08:51)
[2024-07-11] MEDS: FAMOTIDINE 20 MG TABLET PO (08:51)
[2024-07-11] MEDS: ACETAMINOPHEN 325 MG TABLET 650 MG PO (12:05)
[2024-07-11] MEDS: HYDROCODONE/ACET 5/325 TABLET 1 TAB PO ×2 (12:06→16:48)
[2024-07-11] MEDS: AMLODIPINE 5 MG TABLET 10 MG PO (13:41)
[2024-07-11] MEDS: TERAZOSIN 1 MG CAPSULE 2 MG PO (13:41)
[2024-07-11] MEDS: polyethylene glycoL 3350 17 GM POWD.PACK PO (13:42)
[2024-07-11] MEDS: HEPARIN 5,000 UNIT/ML VIAL 5000 UNIT SUBCUT ×2 (13:42→20:18)
--- NOTE | 2024-07-11 14:58 | CM.DANOTE ---
DCP Assessment Note pt is a 78yo F admitted with a right hip fx after a GLF. PCP Glendy Bourne Payer medicare and [employer] ins [employer]AT[employer] INSTRUCTOR reviewed EMR. per chart, OR was originally planned for today, rescheduled for either Thurs/Fri due to OR capacity. A[employer]AT[employer] INSTRUCTOR met with pt in room. pt lives indep at home with spouse in [place]. no DME but has a walker at home that her used for when he had surgery. no hx of SNF/HH. plans to see how she does post op before making too many DCPs. report her spouse can assist her at home. preference is home with spouse and OP appts. P: DCP will f/u after post op therapy recs to review DCP/preferences. potentially good SNF/HH candidate. CONSTANTINO Moss Discharge Planning/Care Management CM Discharge Assessment Start: 07/11/24 14:55 Freq: Status: Active Protocol: Document 07/11/24 14:55 (Rec: 07/11/24 14:57 [id number]) Discharge Planning Assessment Assigned Office Communication Professor CONSTANTINO Sutton DPOA/Assigned Designee Name Georgie, spouse Contact Information [phone] Advance Directives? No History Provided By Patient Prior Living Arrangements House Household Members spouse Independent with ADL's Yes Is patient alert and oriented? Yes Transportation Arrangement pending post OP recs/pt preference Review Status In Process Please Provide Date Initial DC 07/11/24 Assessment Was Performed Next Review Type Continued Stay Review
[2024-07-11] MEDS: ATORVASTATIN 20 MG TABLET 40 MG PO (16:48)
[2024-07-12] VITALS (19 sets, daily range): BP systolic 92–172; BP diastolic 40–92; PULSE 55–72; RESP 14–19; TEMP 35.7–37.2; O2SAT 91–97; BMI 17.9
--- NOTE | 2024-07-12 | DI.RAD.S_ITS ---
PROCEDURE: XR HIP W PEL IF DONE RT 2V INDICATIONS: ORIF RIGHT HIP TECHNIQUE: 5 intraoperative fluoroscopic views of the right hip acquired. COMPARISON: [facility], , XR HIP W PEL IF DONE RT 2V, 07/10/2024, 18:32. FINDINGS: Intraoperative fluoroscopic images shows right total hip arthroplasty in progress. IMPRESSION: Fluoro guidance was provided intraoperatively for right total hip arthroplasty performed by ordering physician. Dictated by: Sushil Leigh M.D. on 07/12/2024 at 15:29 Approved by: Sushil Leigh M.D. on 07/12/2024 at 15:30
--- NOTE | 2024-07-12 | DI.RAD.S_ITS ---
PROCEDURE: XR HIP W PEL IF DONE RT 2V INDICATIONS: POST OP ORIF RIGHT HIP TECHNIQUE: 2 view(s) of the hip acquired. COMPARISON: [facility], ADRY, XR HIP W PEL IF DONE RT 2V, 07/12/2024, 13:45. [facility], CR, XR HIP W PEL IF DONE RT 2V, 07/10/2024, 18:32. FINDINGS: Bones: Patient is status post right hip arthroplasty, with hardware components in expected positions. The hip joint appears congruent. The visualized bony structures appear intact. Soft tissues: Overlying postoperative changes are noted. No suspicious soft tissue densities. IMPRESSION: Expected post-operative appearance of a hip arthroplasty. Dictated by: Hakeem Carey M.D. on 07/12/2024 at 16:17 Approved by: Hakeem Carey M.D. on 07/12/2024 at 16:18
[2024-07-12] MEDS: TERAZOSIN 1 MG CAPSULE 2 MG PO (08:10)
[2024-07-12] MEDS: METOPROLOL ER 50 MG TABLET 100 MG PO ×2 (08:10→21:01)
[2024-07-12] MEDS: AMLODIPINE 5 MG TABLET 10 MG PO (08:10)
[2024-07-12] MEDS: FAMOTIDINE 20 MG TABLET PO (08:10)
[2024-07-12] MEDS: HYDROMORPHONE 0.5 MG INJ IV (08:12)
[2024-07-12] MEDS: ACETAMINOPHEN 325 MG TABLET 650 MG PO ×2 (08:12→17:59)
--- NOTE | 2024-07-12 12:11 | PM.HP.1 ---
History of Present Illness History of Present Illness Chief complaint: GLF, right hip pain Narrative: CHIEF COMPLAINT My right hip is bothering me. SUBJECTIVE The patient reports issues with her right hip. She describes significant discomfort and limitations in mobility. It has been present since the time of injury. It occured after a fall on loose carpet. It is worse with movement and partially alleviated by rest. She has no pain elsewhere. SOCIAL HISTORY None provided. PERTINENT PMH: - Hypertension - Hyperlipidemia - GERD PRIOR HIP/KNEE PROCEDURES None PHYSICAL EXAM Right Hip Exam: - Examination: No open wounds present. The patient has a very slender body habitus. - Neurologic: Intact nerve function in the sciatic nerve distribution. RADIOLOGY Right Hip ? AP pelvis and lateral hip views 1. Displaced right femoral neck fracture observed. ASSESSMENT Displaced right femoral neck fracture. PLAN The plan is to proceed with a right total hip arthroplasty due to the patient's relatively high function and activity levels. A total hip arthroplasty is preferred over a hemiarthroplasty for better outcomes in active patients. - Schedule right total hip arthroplasty. - Monitor postoperative recovery and plan for discharge home eventually. PLAIN LANGUAGE SUMMARY We will perform a right total hip replacement because you are very active, and this surgery will help you maintain your lifestyle. You will stay in the hospital for recovery and will eventually be discharged home. PROCEDURES None [facility] Medical History Uncontrolled hypertension Encounter for initial annual wellness visit (AWV) in Medicare patient Normocytic anemia Hyperlipidemia Tobacco dependence Benign essential HTN Measles Cataracts, bilateral (~2015) Family History Father Cancer Social History household members: spouse Smoking Status: Current every day smoker alcohol intake: current Meds Home Medications and Allergies Home Medications Medication Instructions Recorded Confirmed Type metoprolol succinate 100 mg 100 mg PO BID blood pressure #180 11/15/23 07/10/24 Rx tablet,extended release 24 hr tabs terazosin 2 mg capsule 2 mg PO DAILY blood pressure #90 12/29/23 07/10/24 Rx caps amlodipine 10 mg tablet 10 mg PO DAILY blood pressure #90 05/02/24 07/10/24 Rx tabs atorvastatin 40 mg tablet 40 mg PO DAILY 07/10/24 07/10/24 History olmesartan 40 mg tablet 40 mg PO DAILY blood pressure 07/10/24 07/10/24 History Allergies Allergy/AdvReac Type Severity Reaction Status Date / Time No Known Drug Allergies Allergy Verified 07/12/24 11:43 Exam Vital Signs (past 8 hours): - 07/12/24 06:51 07/12/24 08:00 07/12/24 08:10 Temperature 97.1 F L 97.1 F L Pulse Rate 60 68 67 Respiratory Rate 16 16 Blood Pressure 156/63 H 153/67 H 153/67 H Pulse Oximetry 94 92 Oxygen Delivery Method Oxygen Flow Rate 0 07/12/24 11:16 07/12/24 12:03 Temperature 97.3 F L 98.9 F Pulse Rate 56 L 58 L Respiratory Rate 16 16 Blood Pressure 162/64 H 172/77 H Pulse Oximetry 95 91 Oxygen Delivery Method Room Air Oxygen Flow Rate 0 Fraction of Inspired Oxygen 24 SaO2/FiO2 Ratio 395 Oxygen Delivery Method Room Air Oxygen Flow Rate 0 Objective Labs 07/11/24 05:15 07/11/24 05:15 Assessment & Plan Time-Based Coding :: [TOTAL MINUTES] spent with patient and on the chart (including review of chart, obtaining history, exam, reviewing outside data, placing orders, documenting exam and treatment plan, and counseling patient) on [DATE]. Quality VTE Deep Vein Thrombosis/Pulmonary Embolism Present on Admission: No
[2024-07-12] MEDS: LACTATED RINGERS 1,000 ML 42 ML IV (12:12)
--- NOTE | 2024-07-12 12:18 | SUR.OPER ---
Supine on padded Theodore table with bilateral legs secured in padded positioning boots and suspended in positioning spars, operative leg in traction per surgeon. Head on one pillow. Arm on non-operative side secured on padded armboard <90 degrees abduction. Arm on operative side padded and resting across chest then secured with tape over sheet. Padded perineal post in place per surgeon.
[2024-07-12] MEDS: CEFAZOLIN 2 GM/100 ML PREMIX 100 ML IV ×2 (13:00→16:42)
[2024-07-12] MEDS: TRANEXAMIC ACID 1,000 MG in SODIUM CHLORIDE 0.9% 100 ML 200 MG IV ×2 (13:15→14:43)
[2024-07-12] MEDS: ROPIVACAINE/EPI/CLONIDINE/KET 50 ML SYRINGE INJ (13:32)
[2024-07-12] MEDS: ALBUMIN HUMAN 12.5 GM/250 ML VIAL IV (13:50)
--- NOTE | 2024-07-12 14:17 | CM.DPNOTE ---
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 P: DCP will f/u after post op therapy recs to review DCP/preferences. potentially good SNF/HH candidate. MCR ready=07/13 CONSTANTINO Moss
--- NOTE | 2024-07-12 15:12 | PM.OP.1 ---
Operative Date/Time/Diagnoses Date of procedure: 07/12/24 Pre-op diagnosis: Right femoral neck fracture Post-op diagnosis: same Procedure & Clinicians Procedure: Right total hip arthroplasty Same procedure as scheduled: Yes Surgeon: Pierre Olmedo Click Yes if Unassisted: Yes Anesthesia Type: Spinal, Sedation and Local Operative Notes Estimated Blood Loss (mL): 250 Procedure in detail: Right Hybrid Fixation Direct Anterior Depuy Total Hip Arthroplasty with Uncemented Acetabular Component and Cemented Femoral Component: Implants: Purchase Gription size 52 cup?with 2 screws (40 mm, 15 mm) C Stem femoral stem size 1 standard offset? 36 mm +5 ceramic femoral head? Procedure Summary: This 78-year-old female patient had a right femoral neck fracture. She has a BMI of 18. 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 I utilized cemented fixation for her femoral component given the indication for the surgery being fracture. Her fracture extended very far distally and this resulted in the broach going all the way down to the lesser trochanter which was essentially of the distal extent of her fracture. In order to limit tension during reduction initially trialed with a-2 head which was dramatically short. Because of my inability to template her prior to surgery I wanted to start with the smallest construct possible to limit the risk of iatrogenic fracture during reduction. After switching to a +5 head I noted that she was short radiographically so I cemented the stem slightly proud to increase the length of the final construct. This resulted in more appropriate leg lengths and I repeated the trialing process after cementation of the femoral stem to confirm final leg lengths and offset would be appropriate. She had excellent stability in all trialed parameters. Procedure in Detail: This patient was seen preoperatively and evaluated for hip pain which was refractory to numerous nonoperative treatment modalities. Their hip pain correlated with radiographic changes demonstrating significant degeneration in the hip joint. The risks and benefits of continued nonoperative management versus operative management were discussed at length and all of the patient?s questions were answered. Additional educational materials providing further details beyond our discussion in clinic were provided via a publicly available patient education video which included the incidence of medical complications associated with total hip arthroplasty, reasons for revision following total hip arthroplasty, and patient satisfaction rates following total hip arthroplasty. That video can be accessed at [email or web address] . With this understanding of the risks inherent to the procedure, the patient elected to move forward with operative management. Following preoperative optimization, the patient was scheduled for surgery. The patient was met in the preoperative holding area the day of the procedure and all questions were answered. The patient?s nares were swabbed with betadine in order to decolonize them from MRSA. Informed consent was signed and the right limb was marked with indelible ink.? The patient was brought back to the operating room where anesthesia was induced. The patient was transferred to the [place] table and all bony prominences were padded. The operative site was prepped and draped in the usual sterile fashion. Prior to incision, tranexamic acid and cefazolin were administered. Operative templating images were displayed demonstrating the anticipated implant sizes and correct operative extremity. A timeout procedure was performed verifying the patient?s identity, medical comorbidities, allergies, relevant medications, anesthesia type and the surgical plan. All present were in agreement. The assistance of a physician ophthalmic surgical assistant was required for positioning, room setup, soft tissue retraction and wound closure. Without this assistance, the procedure would have been significantly more challenging and time consuming.?? A direct anterior approach to the hip was utilized. This was performed with a longitudinal incision through a Heuter interval. The incision was planned 2 cm distal and 2 cm lateral to the ASIS extending towards the lateral patella, in line with the muscle body of the TFL. Following incision, the subcutaneous tissue was dissected while taking care to avoid injury to the lateral femoral cutaneous nerve. The fascia overlying the TFL was identified by dissecting off the overlying fat and identifying perforating vessels to the TFL. The TFL fascia was incised and dissected away from the medial border of the TFL. A retractor was placed over the superior femoral neck between the abductors and the hip capsule and used to reflect the TFL laterally. A Zamora self-retainer was then placed in the distal aspect of the wound between the TFL and the rectus femoris. This was tensioned to open up the direct anterior interval and the lateral circumflex vessels were identified and coagulated using electrocautery. The floor of the TFL fascia was incised, exposing the pericapsular fat overlying the hip capsule. A second cobra retractor was placed on the inferior femoral neck. A retractor was placed on the anterior wall of the acetabulum and used to tension the reflected head of rectus femoris, which was then released in order to limit soft tissue tension. A capsulotomy was made in the midline of the anterior hip capsule in line with the femoral neck ending at the vastus tubercle. The retractor was removed in order to limit the amount of time that a soft tissue retractor remained on the anterior wall and limit tension on the femoral nerve. Tag stitches were placed in the superior and inferior leaflets of the hip capsule. An Ja soft tissue retractor was introduced over the tag stitches and tensioned in the interval between the rectus femoris and the TFL in order to retract and protect those muscles. The cobra retractors were replaced intracapsularly, with one over the superior neck in the pocket created by the base of the greater trochanter and the other on the femoral head. The capsulotomy was extended laterally to the base of the greater trochanter and medially to the lesser trochanter. This required externally rotating the hip. Once the lesser trochanter had been identified, a neck cut was planned according to measurements from preoperative templating. A ruler was cut at the length measured between the superior aspect of the lesser trochanter and the collar of the prosthesis. This line was extended towards the inferior aspect of the lateral cobra retractor to plan a cut which would leave minimal residual femoral neck laterally. The neck was cut at 60 degrees of external rotation along that line. A second cut was performed to remove a large napkin ring and facilitate head extraction. The napkin ring cut and femoral head were removed.?? A broad anterior wall retractor was placed between the labrum and the anterior capsule so that the anterior capsule would prevent capturing and pinching the femoral nerve anteriorly. An additional retractor was placed on the posterior wall. External rotation and traction were applied through the L[place] table so that the cut surface of the femoral neck would not restrict access to the acetabulum. The labrum was excised sharply and the pulvinar was excised with electrocautery to limit bleeding from branches of the obturator artery. Acetabular reamers were selected based on preoperative templating and measurements of the excised femoral head. These were introduced into the acetabulum. Fluoroscopy was utilized to replicate a standing AP pelvis radiograph by centering over the pelvis, rotating until there was appropriate symmetry between the obturator foramen, and introducing caudal tilt to match the position of the pubic symphysis relative to the sacrococcygeal junction according to the patient?s anatomy. Once satisfied with the reaming depth corresponding to the preoperative template and the pinch fit between the columns, an appropriate sized acetabular cup was selected which would provide 1 mm of press-fit. This cup was introduced and manipulated until appropriate abduction and anteversion angles were obtained with careful attention to appropriate abduction and anteversion angles as evaluated by the position of the cup relative to the anterior and posterior pritchard of the acetabulum and the AP fluoroscopy which recreated the patient?s standing radiograph. The cup was impacted into place. Two screws were placed to provide additional fixation. Peripheral osteophytes were removed. The acetabular liner was then placed with care to ensure locking of the locking mechanism.? Attention was then turned to the femur. All retractors were removed, traction was released, a retractor was placed in the interval between the hip capsule and the gluteus minimus, and the hip was externally rotated to 90 degrees. The lateral capsule was released using electrocautery. Traction was released and a Lenz[place] hook was placed posteriorly around the proximal femur at the level of the vastus ridge. The table height was lowered in order to restrict the tension on the anterior structures during hip hyperextension to limit the risk of femoral nerve palsy. With traction off and the hip at 90 degrees of external rotation, the hip was hyperextended and adducted while manually elevating the femur away from the acetabulum with the [place] hook to ensure it would not be caught behind the greater trochanter. An asymmetric retractor was placed over the calcar and a broad double-pronged retractor was placed over the greater trochanter. The tag stitch capturing the lateral leaflet of the capsule was moved to the medial side, leaving the conjoined and piriformis tendons isolated in the face of the greater trochanter. The hip was externally rotated and elevated. A release of the conjoined tendon was utilized to protect the femur from iatrogenic fracture during broaching. The canal was opened with an opening broach and a rasp was used to remove cancellous bone. A rongeur was used to remove the residual lateral bone at the base of the greater trochanter to avoid placing the stem in varus. The femur was then broached to the appropriate sized stem yielding good rotational fit and fill of the canal as well as appropriate version of the stem trial. Neck and head trials were placed, all retractors were removed and the hip was returned to neutral abduction and extension. I then reduced the hip and manually trialed it before changing surgical gloves. Initial trialing was performed with a size 1 broach, a standard offset neck and a -2 head. I did not do any stability testing at that point in time so as to limit the risk of iatrogenic fracture. An AP pelvis fluoroscopic image matching the preoperative standing radiograph with both lesser trochanters visible and both hips in 40 degrees of external rotation demonstrated that the operative site was dramatically short so I switched to a +5 head. With the +5 head it was still very short. AP and lateral hip fluoroscopic images were obtained to evaluate the broach size which demonstrated that the distal extent of the fracture had extended all the way to the top of the lesser trochanter and this had resulted in a construct that was still significantly short with the +5 head. The hip was dislocated and I returned to the broaching position. Based on my evaluation during initial trialing I planned to cement the stem slightly proud to increase the length as the distal extent of the fracture had functionally become a very low neck cut. I then returned to the broaching position and prepared for cementation. Prior to cementation I irrigated the canal, placed a cement restrictor, irrigated the canal again, placed epinephrine-soaked vaginal packing with a whistle-tip catheter, and removed the whistle-tip catheter after insertion of cement. . The definitive stem was placed. Cement was allowed to dry and the trunnion was cleaned and dried. I placed a trial +5 head onto the trunnion. I repeated the trialing process. I manually reduced the hip and noted that there was good soft tissue tension. I attempted to dislocate it by maximally externally rotating the hip and was unable to do so. I was able to rotated as far as 140?. I did a 45 degree drop test which did not demonstrate any instability. AP pelvis with both hips in 45? of external rotation demonstrated equal leg lengths and increased offset as compared to the other side. AP hip x-ray demonstrated that the stem had been cemented proud and was potentially in slight varus due to the lack of medial restraint from the distal extent of the fracture. Lateral hip x-ray demonstrated appropriate cement fill. I therefore returned to the broaching position, cleaned and dried the trunnion, and impacted into place a ceramic +5 head. All retractors were removed and the hip was reduced. A dilute mixture of betadine and peroxide was used to bathe the soft tissues during final fluoroscopic assessment. Appropriate component positioning was confirmed on an AP pelvis radiograph with the operative and nonoperative legs in 40 degrees of external rotation, evaluating leg length and offset. Appropriate stem fill was evaluated on AP and lateral hip radiographs. No fractures were identified on these radiographs. There was no hip instability with maximum (140?) external rotation as well as a 45 degree drop test. The hip was copiously irrigated with pulse lavage. The capsule was closed with absorbable interrupted suture. The TFL fascia was closed with barbed suture while carefully protecting the lateral femoral cutaneous nerve from entrapment. A mixture of Ropivacaine, Epinephrine, Clonidine and Toradol was infiltrated throughout the soft tissues. The skin was closed with 2-0 and 3-0 sutures. Surgical glue was applied and a soft dressing was placed.??The sponge, instrument and needle counts were reported as being correct at the end of the case.??No obvious complications occurred. The patient was transferred from the [place] table back to a stretcher. The patient emerged from anesthesia without difficulty and was taken to the PACU in a stable condition.? Plan for aftercare: No hip precautions Weightbearing as tolerated Aspirin 81 twice per day for DVT prophylaxis Given the patient's good baseline function and robust social support I anticipate she will not need to discharge to a nursing facility. Multimodal pain regimen with no IV opioids ordered Apply ice machine to operative hip. Ensure that sufficient ice is in the chamber for the pad to remain cold Follow up at [facility] in 2 weeks Detailed postoperative instructions available at [email or web address]
[2024-07-12] MEDS: ACETAMINOPHEN IV 1,000 MG/100 ML VIAL 400 MG IV (15:28)
[2024-07-12] MEDS: LACTATED RINGERS 1,000 ML 100 ML IV (16:42)
[2024-07-12] MEDS: ATORVASTATIN 20 MG TABLET 40 MG PO (16:44)
--- NOTE | 2024-07-12 16:51 | PM.PN.1 ---
Subjective Subjective Interval history: From night doctor: 78 y/o F, with h/o HTN, HLD, GERD admitted with R hip fracture. S/p OR today. Seen after surgery, no complaints at this time including chest pain, nausea, shortness of breath. Exam Vital Signs (past 8 hours): - 07/12/24 11:16 07/12/24 12:03 07/12/24 15:09 Temperature 97.3 F L 98.9 F 98.6 F Pulse Rate 56 L 58 L 68 Respiratory Rate 16 16 19 Blood Pressure 162/64 H 172/77 H 107/70 Pulse Oximetry 95 91 94 Oxygen Delivery Method Room Air Room Air Oxygen Flow Rate 0 07/12/24 15:14 07/12/24 15:19 07/12/24 15:24 Temperature 98.6 F 98.5 F 98.5 F Pulse Rate 61 59 L 57 L Respiratory Rate 18 18 16 Blood Pressure 92/40 L 121/63 122/56 L Pulse Oximetry 94 94 95 Oxygen Delivery Method Room Air Room Air Room Air Oxygen Flow Rate 07/12/24 15:34 07/12/24 15:57 07/12/24 16:32 Temperature 98.2 F 96.3 F L Pulse Rate 72 58 L Respiratory Rate 18 14 16 Blood Pressure 150/92 H 135/42 L Pulse Oximetry 95 97 96 Oxygen Delivery Method Room Air Room Air Oxygen Flow Rate 0 Fraction of Inspired Oxygen 24 SaO2/FiO2 Ratio 395 Oxygen Delivery Method Room Air Oxygen Flow Rate 0 Narrative Exam Narrative: NAD, alert and oriented. Fluent speech. Lungs are clear, normal rate and effort. Heart is regular, no murmur gallop or rub. Abdomen is soft, non distended. Extremities are free of edema. Objective Labs 07/11/24 05:15 07/11/24 05:15 [facility] Medical History Uncontrolled hypertension Encounter for initial annual wellness visit (AWV) in Medicare patient Normocytic anemia Hyperlipidemia Tobacco dependence Benign essential HTN Measles Cataracts, bilateral (~2015) Family History Father Cancer Social History household members: spouse Smoking Status: Current every day smoker alcohol intake: current Assessment & Plan Assessment & Plan narrative: 1. Closed hip fracture (right), present on admission and active. 2. Uncontrolled hypertension, present on admission and active. Increase in SBP likely sec to R hip pain. Improved today. Continue Metoprolol 100 mg BID, give pm dose now. 3. Hyperlipidemia, present on admission and stable. Takes Atorvastatin 40 mg po daily. 4. Possible acute hypoxic respiratory failure, ruled out / resolved PLAN: -POD#0 orthopedic interventions. Start PT/OT tomorrow -Continue as needed pain relief -Heparin SQ for DVT prophylaxis. -continue incentive spirometry, no hypoxia today. -labs ordered for tomorrow Time-Based Coding :: [TOTAL MINUTES] spent with patient and on the chart (including review of chart, obtaining history, exam, reviewing outside data, placing orders, documenting exam and treatment plan, and counseling patient) on [DATE]. Quality VTE Deep Vein Thrombosis/Pulmonary Embolism Present on Admission: No
[2024-07-12] MEDS: DOCUSATE 100 MG CAPSULE PO (21:01)
[2024-07-12] MEDS: ASPIRIN EC 81 MG TABLET PO (21:01)
[2024-07-12] MEDS: OXYCODONE IR 5 MG TABLET PO (21:02)
[2024-07-13] MEDS: ACETAMINOPHEN 325 MG TABLET 650 MG PO ×4 (01:50→20:50)
[2024-07-13] MEDS: CEFAZOLIN 2 GM/100 ML PREMIX 100 ML IV (01:51)
[2024-07-13 05:00] VITALS: BP 138/82; PULSE 66; RESP 18; TEMP 37.1; O2SAT 96
[2024-07-13 05:35] LABS: Add Manual Diff / Slide Review NO; Basophils Absolute Auto 0 /uL (0-100); Basophils Percent Auto 0.1 % (0-2); Eosinophils Absolute Auto 0 /uL (0-450); Hematocrit 24.8 % (36-46); Hemoglobin 8.5 g/dL (12.0-16.0); Lymphocytes Absolute Auto 500 /uL (1100-4500); Lymphocytes Percent Auto 4.3 % (25-40); Mean Corpuscular HGB Conc 34.2 % (30-36); Mean Corpuscular Hemoglobin 32.1 PG (26-34); Monocytes Absolute Auto 500 /uL (0-900); Monocytes Percent Auto 4.9 % (3-14); Neutrophils Absolute Auto 10000 /uL (1500-7000); Neutrophils Percent Auto 90.7 % (50-75); Platelet Count 124 X10^3/uL (150-400); Red Blood Cell Count 2.64 X10^6/uL (4.0-5.2)
[2024-07-13 06:36] LABS: BUN Creatinine Ratio 13.7 (6-22); Blood Urea Nitrogen 10 mg/dL (7-17); Calcium 8.5 mg/dL (8.4-10.2); Carbon Dioxide 25 mmol/L (22-32); Chloride 101 mmol/L (98-107); Estimated Glomerular Filt Rate > 60 mL/min (>60); Glucose 161 mg/dL (80-110); HEMOLYSIS < 15 (0-50); Magnesium 1.3 mg/dL (1.6-2.3); Potassium 3.8 mmol/L (3.4-5.1); Sodium 131 mmol/L (137-145)
--- NOTE | 2024-07-13 07:00 | PC.NURSE ---
At approx 0650 bed alarm went off and pt found attempting to exit bed. Self-removed butler catheter, balloon inflated and tip intact, redirected and encouraged to remain in bed. Primary RN notified. Bed alarm set to most sensitive setting. Due to void at approx 14:30.
[2024-07-13 08:00] VITALS: BP 141/82; PULSE 60; RESP 20; TEMP 36.2; O2SAT 97
--- NOTE | 2024-07-13 08:15 | P.PN_ITS ---
Subjective Subjective Date Patient Seen: 07/13/24 Time Patient Seen: 08:00 Interval history: Patient's pain is controlled with oral medication. Pain is localized to surgical site. Patient declines any new numbness or tingling at the surgical extremity. Patient denies any shortness of breath, dizziness, light-headedness, nausea, vomiting, fever or chills. Exam Vital Signs (past 8 hours): - 07/13/24 05:00 07/13/24 08:00 Temperature 98.8 F 97.1 F L Pulse Rate 66 60 Respiratory Rate 18 20 Blood Pressure 138/82 141/82 H Pulse Oximetry 96 97 Oxygen Flow Rate 0 0 Fraction of Inspired Oxygen 24 SaO2/FiO2 Ratio 395 Oxygen Delivery Method Room Air Oxygen Flow Rate 0 Narrative Exam Narrative: 5/5 strength in quadriceps, hamstrings, DF, PF, EHL bilaterally. Sensation to light touch intact throughout BLE. Calves soft, compressible, nontender. Dressing placed intraoperatively CDI. Resp Effort & Inspection: normal respiratory effort and able to speak in complete sentences Objective Labs 07/13/24 04:55 07/13/24 04:55 Labs: Laboratory Results - last 24 hr 07/13/24 04:55 WBC 11.0 RBC 2.64 L Hgb 8.5 L Hct 24.8 L MCV 94.0 MCH 32.1 MCHC 34.2 RDW 15.0 H Plt Count 124 L Neut % (Auto) 90.7 H Lymph % (Auto) 4.3 L [place] % (Auto) 4.9 Eos % (Auto) 0.0 L Baso % (Auto) 0.1 Neut # (Auto) 13169 H Lymph # (Auto) 500 L [place] # (Auto) 500 Eos # (Auto) 0 Baso # (Auto) 0 Sodium 131 L Potassium 3.8 Chloride 101 Carbon Dioxide 25 BUN 10 Creatinine 0.73 Estimated GFR > 60 BUN/Creatinine Ratio 13.7 Glucose 161 H Calcium 8.5 Magnesium 1.3 L PFSH Medical History Uncontrolled hypertension Encounter for initial annual wellness visit (AWV) in Medicare patient Normocytic anemia Hyperlipidemia Tobacco dependence Benign essential HTN Measles Cataracts, bilateral (~2015) Family History Father Cancer Social History household members: spouse Smoking Status: Current every day smoker alcohol intake: current Assessment & Plan Post-op Postoperative Procedures: Procedures Operation Date: 07/12/24 12:30 Actual Procedure Side Surgeon p Total Hip Arthroplasty/Anterior Approach Right Pierre Olmedo MD Postoperative day: 1 Postoperative status: doing well Postoperative plan: routine post-op care Postoperative plan narrative: Anterior hip precautions Weightbearing as tolerated with assistive devices. Work with inpatient PT for mobilization. Aspirin 81 twice per day for DVT prophylaxis Given the patient's good baseline function and robust social support I anticipate she will not need to discharge to a nursing facility. Discharge to home when medically stable Multimodal pain regimen. Recommendations meloxicam 7.5 mg b.i.d. and acetaminophen 500 mg q.4 hours PRN. Oxycodone 5 mg q.4 hours PRN breakthrough pain. Apply ice machine to operative hip. Ensure that sufficient ice is in the chamber for the pad to remain cold Follow up at [facility] in 2 weeks. Time Spent With Patient Time with patient: 15-24 minutes Quality VTE Deep Vein Thrombosis/Pulmonary Embolism Present on Admission: No
[2024-07-13] MEDS: MAGNESIUM CHLORIDE 64 MG TABLET 128 MG PO ×2 (09:50→17:14)
[2024-07-13] MEDS: TERAZOSIN 1 MG CAPSULE 2 MG PO (09:54)
[2024-07-13] MEDS: FAMOTIDINE 20 MG TABLET PO (09:54)
[2024-07-13] MEDS: METOPROLOL ER 50 MG TABLET 100 MG PO (09:54)
[2024-07-13] MEDS: LOSARTAN 50 MG TABLET 100 MG PO (09:55)
[2024-07-13] MEDS: ASPIRIN EC 81 MG TABLET PO ×2 (09:55→20:51)
[2024-07-13] MEDS: DOCUSATE 100 MG CAPSULE PO ×2 (09:55→20:51)
--- NOTE | 2024-07-13 11:05 | PT.IIE ---
Current Diagnoses Mixed hyperlipidemia (07/10/24) Essential (primary) hypertension (07/10/24) Fracture of unspecified part of neck of right femur, initial encounter for closed fracture (07/10/24) Nondisplaced intertrochanteric fracture of right femur, initial encounter for closed fracture (07/10/24) Surgery Performed Operation Date: 07/12/24 12:30 Actual Procedures p Total Hip Arthroplasty/Anterior Approach(Right) - Pierre Olmedo MD Medical History (Last Reviewed 07/11/24 @ 07:05 by Jacky Clark MD) Benign essential HTN Cataracts, bilateral (~2015) Encounter for initial annual wellness visit (AWV) in Medicare patient Hyperlipidemia Measles Normocytic anemia Tobacco dependence Uncontrolled hypertension Physical Therapy Inpatient Evaluation/Re-Eval M1 PT/OT-IP Prior Functional Status Start: 07/13/24 08:54 Freq: NEEDED Status: Active Protocol: Document 07/13/24 11:05 DLM (Rec: 07/13/24 12:27 DLM [id number]) Medical Review Prior Functional Status Medical History Reviewed Yes Diet/Fluid Consistency Regular Communication WNL, reading glasses Mobility and Gait Independent without device, walks dog Activities of Daily Living and IADL's Independent, stands for shower Social History Household Members spouse Living Arrangements House Number of Floors (Floors) One Floor Number of Stairs To Enter/Railing? 2 steps with rail Home Environment Standard Height Toilet,Walk in Shower Home Equipment Front Wheel Walker,Four Wheel Walker,Bedside Commode,Shower Seat with Backrest,Hand Held Shower Employment Status Retired M2 PT-IP Current Condition Start: 07/13/24 08:54 Freq: NEEDED Status: Active Protocol: Document 07/13/24 11:05 DLM (Rec: 07/13/24 12:27 DLM [id number]) Physical Therapy Current Condition Current Condition Evaluation Date 07/13/24 Treatment Diagnosis Right KANE 07/12, anterior approach due to right femur fx , impaired gait Onset Date 07/10/24 M3 PT-IP Subjective Start: 07/13/24 08:54 Freq: NEEDED Status: Active Protocol: Document 07/13/24 11:05 DLM (Rec: 07/13/24 12:27 DLM [id number]) Subjective Physical Therapy Visit Type Type Initial Evaluation Visit Start Time 10:30 Visit Stop Time 11:05 Notes 35 minutes Number of COMMERCIAL LENDING ASSISTANT Visits 0 Physical Therapy Visit Comments Patient Comments She aware she broke right hip from a fall at home and has surgerical repair. She believes she was home yesturday. Patient Goals get better Therapy Pain Assessment Pain When Pain Assessed During Mobility Pain Present Pain Present Pain Reported Location right hip Intensity 3 Scale Used Numeric (0 - 10) Description Aching,Tender,With Movement Pain Behaviors Facial Grimacing Pain Management Techniques Modification of Treatment,Re- positioning,Timing of Activity with Medications M4 PT-IP Mobility and Gait Start: 07/13/24 08:54 Freq: NEEDED Status: Active Protocol: Document 07/13/24 11:05 DLM (Rec: 07/13/24 12:27 DLM [id number]) PT-Bed Mobility Assessment Supine to Sit Supine to Sit Standby Assistance Scooting Scooting to Edge of Bed Standby Assistance Scooting Up and Down in Bed Moderate Assistance PT-Transfer Assessment Sit to and From Stand Sit to and from Stand Minimal Assistance,Use of Upper Extremities Equipment Transfer Assistive Device Gait Belt,Front Wheeled Walker Transfers Transfer Destination Bed,Chair Transfer Technique Stand Step Pivot Transfer Ability Level of Assist Minimal Assistance,Moderate Assistance,Use of Upper Extremities Comments Mobility Comments She needs education to safely use FWW and safe use of UE's to assist during transfers. She shows decreased control of decent during stand to sit. PT up to recliner with feet elevated and chair alarm in use. Pt educated to have staff assist for all activity but she shows poor recall of this information shortly after it was provided. Gait Assessment Gait Gait Assistance Required: Minimum Assistance,Moderate Assistance Distance (Feet) 10 Assistive Devices Assistive Device Gait Belt,Front Wheeled Walker Gait Deviations General Gait Pattern Antalgic,Ataxic,Decreased Stride Length,Decreased Feet Clearance,Narrow Based Gait Factors Limiting Gait Function Factors Limiting Gait Function Decreased Activity Tolerance, Decreased Strength,Pain,Poor Balance,Poor Safety Awareness Comments Gait Comments She has an unsafe gait pattern with decreased coordination of her feet during stepping that intermittently causes scissoring or other impaired feet placement. She has decreased functional dorsiflexion bilaterally during gait. She needs cuing and assist to stay centered and close to the FWW. Stair Climbing Assessment Comments Stair Climbing Comments not safe to progress to stairs this visit PT-Balance Assessment Sitting Balance and Reactions Static Sitting Balance Ability Normal Dynamic Sitting Balance Ability Good Standing Balance and Reactions Static Standing Balance Ability Fair Dynamic Standing Balance Ability Poor Device Used FWW M5 PT-IP Objective Assessments Start: 07/13/24 08:54 Freq: NEEDED Status: Active Protocol: Document 07/13/24 11:05 DLM (Rec: 07/13/24 12:27 [facility] [id number]) Orientation Orientation/Cognition Level of Alertness Alert Orientation Name Safety Awareness Decreased Safety Awareness Memory Description Short Term Impaired Comments Decreased recall of safety information provided. She intermittently forgets she is in the hospital. Nursing reports she has pulled out her IV's and butler catheter. She had difficulty following verbal instructions for manual muscle testing Gross Range of Motion Upper Extremity ROM Assessment Within Functional Limits Lower Extremity ROM Assessment Within Functional Limits Impairments pain in right hip following KANE, extension and ER of hip not fully assessed to protect surgical site but is functional for mobility Left ankle Dorsiflexion range of motions is impaired actively and passively, she is -20 degrees from neutral dorsiflexion. Strength Upper Extremity Strength Assessment Within Functional Limits Lower Extremity Strength Assessment Right Impaired Hip flex 3/5 Knee ext 3+/5 Ankle DF 4+/5 Coordination Assessment Gross Coordination Gross Coordination Impaired Assessment Coordination Comments mild to moderate tremors, ataxic which is worse during gait Sensation Assessment Comments Sensation Comments she reports hx of numbness and tingling in feet at night, she reports none at this time Muscle Tone Muscle Tone WNL Yes M6 PT-IP Treatment Start: 07/13/24 08:54 Freq: NEEDED Status: Active Protocol: Document 07/13/24 11:05 DLM (Rec: 07/13/24 12:27 [facility] [id number]) Physical Therapy Treatment Exercises Exercises Ankle Pumps Education Education Provided Weight Bearing Status,Post-Op Packet,Safety Other Treatments Other Treatment Performed no family present this visit M7 PT-IP Assessment and Plan Start: 07/13/24 08:54 Freq: NEEDED Status: Active Protocol: Document 07/13/24 11:05 DLM (Rec: 07/13/24 12:27 [facility] [id number]) PT Summary Assessment and Plan Potential Rehabilitation Potential Good Status of Condition at Evaluation Evolving Summary Impairments Pain,ROM,Strength,Balance, Coordination,Cognition,Bed Mobility,Transfers,Gait, Activity Tolerance Progress Towards Goals Slow Progress due to Medical Issues Assessment Summary Jeniffer is alert and resting in bed. She was admitted after falling at home with right femur fracture. She also tested positive for UTI. She underwent right KANE with anterior approach 07/12/24. No hip precautions were ordered. She continues to be confused today. She is motivated to participate in mobility and gait. She presents with ataxic movement patterns that effect the safety of her gait. Initiated education using FWW for gait. Pt is very forgetful and has difficulty recalling safety information. She will need ongoing Physical Therapy to assist with her functional recovery. She is not safe to discharge home. No family is present this visit to discuss discharge planning. She is a high risk for falls due to her cognitive and physical limitations at this time. Recommend SNF rehab at discharge. Goals Bed Mobility Goal Independent Transfer Goal Standby Assistance,Front Wheeled Walker Gait Goal Standby Assistance,Front Wheel Walker Gait Distance 150 feet Other Goals Up/down 2 steps with rail and cane with CG/SBA Days to Meet Goals 10 Frequency of Treatment Frequency Of Treatment Twice a Day Treatment Plan Physical Therapy Treatment Plan Bed Mobility Training,Transfer Training,Gait Training, Therapeutic Exercise,Balance Retraining,Post Op Education, Discharge Planning,Hot or Cold Pack,Neuromuscular Re-ed Precautions Other Precautions no hip precautions ordered following anterior KANE on right Chair and bed alarm due to high fall risk with confusion Weight Bearing Status Weight Bearing Status Weight Bear as Tolerated Allowed Weight Bearing Amount (enter % right LE with FWW or #) (%) Recommendations To Nursing Amount of Assist Needed 1 Person Assist Discharge Recommendations PT Discharge Recommendations SNF Rehab Transportation Needs at Discharge Private Vehicle,Wheelchair/ Cabulance - PT assist 1P
--- NOTE | 2024-07-13 11:29 | OT.IP.EVAL ---
Current Diagnoses Mixed hyperlipidemia (07/10/24) Essential (primary) hypertension (07/10/24) Fracture of unspecified part of neck of right femur, initial encounter for closed fracture (07/10/24) Nondisplaced intertrochanteric fracture of right femur, initial encounter for closed fracture (07/10/24) Surgery Performed Operation Date: 07/12/24 12:30 Actual Procedures p Total Hip Arthroplasty/Anterior Approach(Right) - Pierre Olmedo MD Past Medical History (Last Reviewed 07/11/24 @ 07:05 by Jacky Clark MD) Benign essential HTN Cataracts, bilateral (~2016) Encounter for initial annual wellness visit (AWV) in Medicare patient Hyperlipidemia Measles Normocytic anemia Tobacco dependence Uncontrolled hypertension Occupational Therapy Inpatient Evaluation/Re-Eval M1 PT/OT-IP Prior Functional Status Start: 07/13/24 08:54 Freq: NEEDED Status: Active Protocol: Document 07/13/24 11:05 DLM (Rec: 07/13/24 12:27 DLM [id number]) Medical Review Prior Functional Status Medical History Reviewed Yes Diet/Fluid Consistency Regular Communication WNL, reading glasses Mobility and Gait Independent without device, walks dog Activities of Daily Living and IADL's Independent, stands for shower Social History Household Members spouse Living Arrangements House Number of Floors (Floors) One Floor Number of Stairs To Enter/Railing? 2 steps with rail Home Environment Standard Height Toilet,Walk in Shower Home Equipment Front Wheel Walker,Four Wheel Walker,Bedside Commode,Shower Seat with Backrest,Hand Held Shower Employment Status Retired M1 PT/OT-IP Prior Functional Status Start: 07/13/24 12:26 Freq: NEEDED Status: Active Protocol: Document 07/13/24 12:26 [facility] (Rec: 07/13/24 12:48 [facility] [id number]) Medical Review Prior Functional Status Medical History Reviewed Yes Mobility and Gait Pt states was independent with needs. Activities of Daily Living and IADL's Pt states was independent with ADL needs and her did IADL needs. Prior Functional Level (Other details) Pt is questionable historian and be good to talk to her family to verify home set-up and prior assist. Social History Household Members spouse Living Arrangements House Number of Floors (Floors) One Floor Number of Stairs To Enter/Railing? 2 small steps and left rail going up. Home Environment Standard Height Toilet,Walk in Shower Home Equipment Shower Seat with Backrest,Hand Held Shower M2 OT-IP Current Condition Start: 07/13/24 12:26 Freq: Status: Active Protocol: Document 07/13/24 12:26 [facility] (Rec: 07/13/24 12:48 [facility] [id number]) Occupational Therapy Current Condition Current Condition Evaluation Date 07/13/24 Treatment Diagnosis fall S/P R KANE Diagnosis Onset Date 07/10/24 Post Operative Precautions Other Precautions Pt has no hip precautions. M3 OT- IP Subjective and Pain Start: 07/13/24 12:26 Freq: Status: Active Protocol: Document 07/13/24 12:26 [facility] (Rec: 07/13/24 12:48 [facility] [id number]) OT- Subjective Occupational Therapy Visit Type Type Initial Evaluation Visit Start Time 11:29 Visit Stop Time 11:50 Occupational Therapy Visit Comments Patient Comments Pt agreed to get up. Pt is a bit confused thinking she is at [place] but was aware she broke her hip from a fall. OT Pain Assessment Pain When Pain Assessed At Rest Pain Present Pain Present Pain Reported Location right hip Intensity 5 Scale Used Numeric (0 - 10) M4 OT- IP ADL's Start: 07/13/24 12:26 Freq: Status: Active Protocol: Document 07/13/24 12:26 [facility] (Rec: 07/13/24 12:48 [facility] [id number]) OT [id number] Comments OT Self-Feeding Comments Not at meal time. OT ADL-Grooming Comments OT Grooming Comments Not performed. OT ADL-Oral Care Comments Oral Care Comments Not performed. OT ADL-Dressing General Eval Lower Body Dressing Ability Maximum Assistance Areas Needing Assistance Socks OT ADL-Toileting Comments OT Toileting Comments Pt not having to go at this time. OT ADL-Bathing Comments OT Bathing Comments Not performed. M5 OT- IP IADL's Start: 07/13/24 12:26 Freq: Status: Active Protocol: Document 07/13/24 12:26 [facility] (Rec: 07/13/24 12:48 [facility] [id number]) OT-Instrumental Activities of Daily Living Home Safety Awareness Home Safety Comments Pt is a bit confused at this time. Medication Management Medication Management Caregiver Administers Money Management Money Management Caregiver Provides Assistance Meal Preparation Meal Preparation Caregiver Provides Assist Fisher Mussel Fisher Mussel Caregiver Provides Assist M6 OT- IP Functional Cognition Start: 07/13/24 12:26 Freq: Status: Active Protocol: Document 07/13/24 12:26 [facility] (Rec: 07/13/24 12:48 [facility] [id number]) Cognitive Factors Limiting Selfcare Function Cognitive Ability Level of Alertness Confusional State Patient Orientation Name,Situation Attention Span Ability Capable of Focused Attention, Unable to Sustain Attention Ability to Follow Commands Able to Follow One Step Commands with Increased Time, Able to Follow One Step Commands with Repetition Cognitive Comments Cognitive Assessment Comments Pt is a bit confused at this time and needing simple concrete cues to follow. Pt seems to have decreased awareness and control to her LLE at this time. OT- Vision and Hearing OT- Vision Assessment Visual Acuity Glasses For Reading M7 OT- IP Mobility and Balance Start: 07/13/24 12:26 Freq: Status: Active Protocol: Document 07/13/24 12:26 [facility] (Rec: 07/13/24 12:48 [facility] [id number]) OT-Transfer Assessment Sit to and From Stand Sit to and from Stand Moderate Assistance Transfers Transfer Ability Moderate Assistance Technique Transfer Destination Chair Devices Transfer Assistive Devices Gait Belt,Front Wheeled Walker Comments Mobility Comments MOD A to stand from recliner to FWW. MODA to walk a few steps in the room and needing assist to guide the FWW and for balance. Pt having difficulty to control her LLE and tends to have her heel up. OT- Balance Assessment Sitting Balance and Reactions Static Sitting Balance Ability Good Dynamic Sitting Balance Ability Fair Standing Balance and Reactions Static Standing Balance Ability Poor Dynamic Standing Balance Ability Poor M8 OT- IP Objective Assessments Start: 07/13/24 12:26 Freq: Status: Active Protocol: Document 07/13/24 12:26 [facility] (Rec: 07/13/24 12:48 [facility] [id number]) OT Gross Range of Motion Upper Extremity Range of Motion Assessment Within Functional Limits ROM Impairments Except R index finger. Right index finger per pt cut 20+ years ago and did not get it fixed and therefore deformed and decreased AROM OT Strength Upper Extremity Strength Assessment Within Functional Limits OT- Coordination Assessment Upper Extremity Finger to Nose Test Within Functional Limits M9 OT- IP Assessment and Plan Start: 07/13/24 12:26 Freq: Status: Active Protocol: Document 07/13/24 12:26 [facility] (Rec: 07/13/24 12:48 [facility] [id number]) OT Summary Assessment and Plan Potential Rehabilitation Potential Good Analytic Complexity at Evaluation Moderate Summary OT Impairments Pain,Range of Motion,Strength, Balance,Functional Cognition, Functional Mobility,Self- Feeding,Grooming,Dressing, Toileting,Bathing,Toilet Transfers,Shower Transfers, Activity Tolerance Progress Towards Goals Slow Progress due to Pain,Slow Progress due to Medical Issues,Slow Progress due to Cognition Assessment Summary Pt MOD complexity and main barriers are pain, ataxic movement of LLE, decreased balance, strength and a bit confused. Pt needing MODA for mobility needs and will need assist for all ADL needs. Pt would benefit from skilled rehab. Goals Self-Feeding Goal Independent Grooming Goal Independent Dressing Goal Minimal Assistance Toileting Goal Standby Assistance Bathing Goal Minimal Assistance Toilet Transfer Goal Standby Assistance Shower Transfer Goal Contact Guard Assistance Days to Meet Goals 20 Frequency of Treatment Other frequency 5x/week Treatment Plan OT Treatment Plan ADL Training,Functional Cognition Training,Functional Mobility,Patient/Family Education,Discharge Planning Other Treatment Recommendations and Next Standing ADL's, SLUMS if Treatment Focus appropriate Discharge Recommendations OT Discharge Recommendations SNF Rehab Transportation Needs at Discharge Private Vehicle,Wheelchair/ Cabulance
--- NOTE | 2024-07-13 12:08 | DIET.CONS ---
Dietary Consultation Note Admission Date: 07/10/2024 21:22 Assessment: 78 y F admitted after GLF for hip fx, s/p surgery. Nutrition screened for low BMI. Met with pt in room. Reports low appetite for past 3 days, but normal appetite outside of that. Reports around 2 years ago got COVID and lost 10 lb. Diet recall: coffee latte protein shake and egg sandwich L-snack, yogurt D- homemade meal, chicken, veg, rice Normal weight is 120-115 lb 2+ yrs ago. Has been unable to gain weight back and reports new usual weight in last year or 2 has been 108-110 lb. Ht: 160.02 cm Wt: 46 kg BMI: 18.0 UBW: 49.1 kg on 06/26/24 at PCP (-6% weight loss in 1 month, severe), 49.895 kg on 12/25/23 (-7.8% weight loss in 7 month, non-severe) Last BM: 07/10/24 (07/12/24 11:44) MNA: 11 Thomas Score: 19 Diet: 07/12/24 Dinner General (Regular) Diet Diet Modifications: Nutrition Percent Meal Consumed 50% 07/12/24 18:06 Percent Meal Consumed 10% 07/11/24 18:00 Labs: RBC 2.64 X10^6/uL (4.0-5.2) L 07/13/24 04:55 Hgb 8.5 g/dL (12.0-16.0) L 07/13/24 04:55 Hct 24.8 % (36-46) L 07/13/24 04:55 Creatinine 0.73 mg/dL (0.52-1.04) 07/13/24 04:55 Nutrition Diagnosis: Unintentional weight loss r/t inadequate oral intake aeb -6% weight loss in 1 month, severe Underweight BMI for age r/t inability to regain weight after illness aeb BMI 18.0 Interventions: -Discussed more freq snacks, including additional 1-2 caloric dense snacks per day to help with weight gain back to usual 115-120 lb and post op recovery -Has snacks brought from home for between meals, declines ONS/smoothie, but open to added yogurt at a meal EER: [id number] kcals (33-35 kcals/kg per BMI) 50 g protein (1g/kg) Monitoring/Evaluations: PO intakes Electronically Signed by: Dania Garcia 07/13/24 12:08 Clinical Dietitian [address] [address]
--- NOTE | 2024-07-13 12:46 | PC.NURSE ---
Addendum entered by Grace Sahni R.N. 07/13/24 15:48: Patients came out to talk to this RN and states that Jeniffer drinks a 1/2 bottle of wine to a bottle of whine a daily, if he had to guess. Relayed information to and he did order CIWA. Patient does not have any iv as she pulled out hers for the second time and also pulled out her Archuleta catheter this morning. also states that patient is starting to hallucinated and see things a bit. Staff has not noticed this. Given tylenol for pain and CIWA score was a 2. Patient is resting in bed and her is going to go home now. Original Note: Patient given tylenol for comfort, she worked with PT and OT and is confused a bit wabbly when up ambulating. Dressing to r.hip is anterior and cdi. Patient has a uti, does not have any complaints of discomfort. She is up in the chair now and going back to bed. Patient does get up by herself and is not stable enough to move around on her own.
--- NOTE | 2024-07-13 14:09 | PM.PN.1 ---
Subjective Subjective Interval history: 78 F admitted with hip fracture. No overnight events. Patient did not sleep well, reports adequate pain control today. No chest pain, shortness of breath, nausea, vomiting, diarrhea. Was dizzy briefly when getting up to the bathroom. Exam Vital Signs (past 8 hours): - 07/13/24 08:00 Temperature 97.1 F L Pulse Rate 60 Respiratory Rate 20 Blood Pressure 141/82 H Pulse Oximetry 97 Oxygen Flow Rate 0 Fraction of Inspired Oxygen 24 SaO2/FiO2 Ratio 395 Oxygen Delivery Method Room Air Oxygen Flow Rate 0 Narrative Exam Narrative: NAD, alert and oriented. Fluent speech. Lungs are clear, normal rate and effort. Heart is regular, no murmur gallop or rub. Abdomen is soft, non distended. Extremities are free of edema. Objective Labs 07/13/24 04:55 07/13/24 04:55 Labs: Laboratory Results - last 24 hr 07/13/24 04:55 WBC 11.0 RBC 2.64 L Hgb 8.5 L Hct 24.8 L MCV 94.0 MCH 32.1 MCHC 34.2 RDW 15.0 H Plt Count 124 L Neut % (Auto) 90.7 H Lymph % (Auto) 4.3 L Douglas % (Auto) 4.9 Eos % (Auto) 0.0 L Baso % (Auto) 0.1 Neut # (Auto) 85576 H Lymph # (Auto) 500 L Douglas # (Auto) 500 Eos # (Auto) 0 Baso # (Auto) 0 Sodium 131 L Potassium 3.8 Chloride 101 Carbon Dioxide 25 BUN 10 Creatinine 0.73 Estimated GFR > 60 BUN/Creatinine Ratio 13.7 Glucose 161 H Calcium 8.5 Magnesium 1.3 L [facility] Medical History Uncontrolled hypertension Encounter for initial annual wellness visit (AWV) in Medicare patient Normocytic anemia Hyperlipidemia Tobacco dependence Benign essential HTN Measles Cataracts, bilateral (~2015) Family History Father Cancer Social History household members: spouse Smoking Status: Current every day smoker alcohol intake: current Assessment & Plan Assessment & Plan narrative: 1. Closed hip fracture (right), present on admission and active. 2. Uncontrolled hypertension, present on admission and active. Increase in SBP likely sec to R hip pain. Improved today. Continue Metoprolol 100 mg BID, give pm dose now. -replace home olmesartan with losartan, continue losartan 100 mg daily. 3. Hyperlipidemia, present on admission and stable. Takes Atorvastatin 40 mg po daily. 4. Possible acute hypoxic respiratory failure, ruled out / resolved 5. Acute blood loss anemia due to surgery PLAN: -POD#1 orthopedic interventions. Continue PT/OT -Continue as needed pain relief, increased frequency of tylenol today per patient request. -Heparin SQ for DVT prophylaxis. -continue incentive spirometry, no hypoxia today. -labs ordered for tomorrow -Hg to 8.5 after surgery, continue to follow. No signs/symptoms of active bleeding. No symptoms but was mildly dizzy when getting to the bathroom this morning. Dispo: SNF vs home health in 1-2 more days. Time-Based Coding :: [TOTAL MINUTES] spent with patient and on the chart (including review of chart, obtaining history, exam, reviewing outside data, placing orders, documenting exam and treatment plan, and counseling patient) on [DATE]. Quality VTE Deep Vein Thrombosis/Pulmonary Embolism Present on Admission: No
--- NOTE | 2024-07-13 14:40 | PT-IP ANOTE ---
Attempted to see pt this PM, pt reports this is the worst pain I have ever had and requests to rest and have pain meds. RN notified.
[2024-07-13 16:00] VITALS: BP 132/59; PULSE 69; RESP 18; TEMP 36.4; O2SAT 97
[2024-07-13] MEDS: ATORVASTATIN 20 MG TABLET 40 MG PO (17:14)
[2024-07-13 20:13] VITALS: BP 139/53; PULSE 69; RESP 16; TEMP 36.1; O2SAT 96
[2024-07-13] MEDS: LORazepam 1 MG TABLET PO (20:51)
[2024-07-13 23:00] VITALS: BP 141/46; PULSE 69; RESP 17; TEMP 35.8; O2SAT 95
[2024-07-14] MEDS: HYDROCODONE/ACET 5/325 TABLET 1 TAB PO (01:08)
--- NOTE | 2024-07-14 02:05 | PC.NURSE ---
Addendum entered by Ja Moncada R.N. 07/14/24 05:45: Two CNAs attempted to get patient to bedside commode and patient became verbally and physically aggressive, refusing to sit on commode and yelling. This RN and coordinator RN came into room. Patient called staff bitch on wheels and continued to refuse to sit on bed and yelling at staff and trying to grab at staff's wrists, hitting one SLIDE DEVELOPER wrist. This RN requested Jazmin CORDERO to call Dr. Salcedo for medication and restraints. Patient got back in bed, restraints placed on bilateral upper extremeties. Haldol administered. Call light within reach, 1:1 sitter, all needs met. Purewick placed. Addendum entered by Ja Moncada R.N. 07/14/24 02:27: Patient is confused and hallucinating. Unable to follow directions on anterior hip precautions. Original Note: Patient has sitter 1:1 Faby SLIDE DEVELOPER. Patient pulled off aquacel dressing. Some serosanguineous fluid present, pressure applied, and new dressing applied. Bedding changed and patient given pain medication.
[2024-07-14] MEDS: HALOPERIDOL 5 MG/ML VIAL IM (04:18)
[2024-07-14 06:24] LABS: Add Manual Diff / Slide Review NO; Basophils Absolute Auto 0 /uL (0-100); Basophils Percent Auto 0.4 % (0-2); Eosinophils Absolute Auto 0 /uL (0-450); Eosinophils Percent Auto 0.6 % (2-4); Hematocrit 24.1 % (36-46); Hemoglobin 8.2 g/dL (12.0-16.0); Lymphocytes Absolute Auto 600 /uL (1100-4500); Lymphocytes Percent Auto 8.6 % (25-40); Mean Corpuscular HGB Conc 34.1 % (30-36); Mean Corpuscular Hemoglobin 32.1 PG (26-34); Mean Corpuscular Volume 94.2 fL (80-100); Monocytes Absolute Auto 700 /uL (0-900); Monocytes Percent Auto 9.1 % (3-14); Neutrophils Absolute Auto 6100 /uL (1500-7000); Neutrophils Percent Auto 81.3 % (50-75); Platelet Count 120 X10^3/uL (150-400); Red Blood Cell Count 2.56 X10^6/uL (4.0-5.2); Red Cell Distribution Width 15.2 % (11.6-14.8); White Blood Cell Count 7.5 X10^3/uL (4.5-11.0)
[2024-07-14 06:37] LABS: BUN Creatinine Ratio 14.3 (6-22); Blood Urea Nitrogen 9 mg/dL (7-17); Calcium 8.5 mg/dL (8.4-10.2); Carbon Dioxide 26 mmol/L (22-32); Chloride 104 mmol/L (98-107); Estimated Glomerular Filt Rate > 60 mL/min (>60); Glucose 93 mg/dL (80-110); HEMOLYSIS < 15 (0-50); Magnesium 1.6 mg/dL (1.6-2.3); Potassium 3.1 mmol/L (3.4-5.1); Sodium 136 mmol/L (137-145)
[2024-07-14 07:07] VITALS: BP 158/57; PULSE 63; RESP 14; TEMP 36.2; O2SAT 95
[2024-07-14 07:57] VITALS: BP 160/62; PULSE 61; RESP 14; TEMP 36.4; O2SAT 96
[2024-07-14 08:30] VITALS: BP 160/63; PULSE 62
[2024-07-14] MEDS: TERAZOSIN 1 MG CAPSULE 2 MG PO (08:30)
[2024-07-14] MEDS: LOSARTAN 50 MG TABLET 100 MG PO (08:30)
[2024-07-14] MEDS: ASPIRIN EC 81 MG TABLET PO (08:30)
[2024-07-14] MEDS: THIAMINE 100 MG TABLET PO (08:30)
[2024-07-14] MEDS: METOPROLOL ER 50 MG TABLET 100 MG PO (08:30)
[2024-07-14] MEDS: MULTIVITAMIN 1 TABLET 1 TAB PO (08:30)
[2024-07-14] MEDS: FOLIC ACID 1 MG TABLET PO (08:30)
[2024-07-14] MEDS: FAMOTIDINE 20 MG TABLET PO (08:30)
[2024-07-14] MEDS: ACETAMINOPHEN 325 MG TABLET 650 MG PO ×2 (08:31→13:44)
[2024-07-14 09:05] VITALS: PULSE 62
--- NOTE | 2024-07-14 09:50 | PT.IPTN ---
Current Diagnoses Mixed hyperlipidemia (07/10/24) Essential (primary) hypertension (07/10/24) Fracture of unspecified part of neck of right femur, initial encounter for closed fracture (07/10/24) Nondisplaced intertrochanteric fracture of right femur, initial encounter for closed fracture (07/10/24) Surgery Performed Operation Date: 07/12/24 12:30 Actual Procedures p Total Hip Arthroplasty/Anterior Approach(Right) - Pierre Olmedo MD Physical Therapy Treatment Note M2 PT-IP Current Condition Start: 07/13/24 08:54 Freq: NEEDED Status: Active Protocol: Document 07/13/24 11:05 DLM (Rec: 07/13/24 12:27 DLM [id number]) Physical Therapy Current Condition Current Condition Evaluation Date 07/13/24 Treatment Diagnosis Right KANE 07/12, anterior approach due to right femur fx , impaired gait Onset Date 07/10/24 M3 PT-IP Subjective Start: 07/13/24 08:54 Freq: NEEDED Status: Active Protocol: Document 07/14/24 09:50 AB (Rec: 07/14/24 12:59 AB [id number]) Subjective Physical Therapy Visit Type Type Treatment Note Visit Start Time 09:50 Visit Stop Time 10:35 Number of ENGINEERING COORDINATOR Visits 0 Physical Therapy Visit Comments Patient Comments agreeable to get up Therapy Pain Assessment Pain When Pain Assessed At Rest Pain Present Pain Present Pain Reported Location right hip Scale Used pain scale not stated Pain Management Techniques Distraction,Modification of Treatment,Re-positioning, Timing of Activity with Medications M4 PT-IP Mobility and Gait Start: 07/13/24 08:54 Freq: NEEDED Status: Active Protocol: Document 07/14/24 09:50 AB (Rec: 07/14/24 12:59 AB [id number]) PT-Bed Mobility Assessment Supine to Sit Supine to Sit Standby Assistance,1 Person Assistance PT-Transfer Assessment Sit to and From Stand Sit to and from Stand Moderate Assistance,1 Person Assistance,Use of Upper Extremities Equipment Transfer Assistive Device Gait Belt,Front Wheeled Walker Orthotic/Prosthetic Devices or Brace: No Transfers Transfer Destination Chair Transfer Technique Stand Step Pivot Transfer Ability Level of Assist Moderate Assistance,Maximum Assistance,1 Person Assistance ,Use of Upper Extremities Comments Mobility Comments pt in bed. spouse in room. pt agreed to get up. completed supine to sit SBA and cues. able to sit on EOB SBA. pt completed sit to stand from EOB mod A and max cues. ambulated ~ 15 ft using FWW mod to max A and max cues. pt sat on the chair. informed sposue regarding pt's level of assistance and stated that he can assist pt and nobody else is available to assist. stated that he does not want spouse to go to SNF. caregiver training conducted. educated spouse on how to use safety belt and how to assist pt. spouse was able to put safety belt on pt. assisted pt with sit to stand and ambulated pt using fWW ~ 25 ft mod A and max cues. RLE tends to croos midline. PT cued pt to correct. pt with decrerase cognition requiring max cues and repeated instructions. stair climbing training. educated spouse and pt on how to do steps using SPC + ASSISTANT SALES CENTER MANAGER. pt has 2 steps without rails to enter the house. sit to stand from chair mod A and ambulated to the platform step. pt completed steps with PT initially assisting with pt requiring max A and max cues descending using SPC and ASSISTANT SALES CENTER MANAGER. pt unable to descend step despite max A provided usign SPC/ASSISTANT SALES CENTER MANAGER with increase fear of stepping down. positioned FWW to use for descending and completed max A and max cues. Pt repeated stair climbing with spouse assisting but needed cues from PT. pt was able to ascend step using SPC/ ASSISTANT SALES CENTER MANAGER max A and max cues but again unable to descend with use of SPC/ASSISTANT SALES CENTER MANAGER and needing fWW and max A. pt ambulated back to the chair mod A using FWW. positioned pt on the chair. call light and table placed within reach. informed spouse regarding safety and another person to assist them at home. spouse initally stated that their is nobody and if needed, he can just lift pt up the steps. educated spouse on safety recommendation: putting a ramp in, using a w/c to enter or having another person assist them. Gait Assessment Gait Gait Assistance Required: Moderate Assistance Distance (Feet) 25 Able to Maintain Weight Bearing Status Yes During Gait Assistive Devices Assistive Device Gait Belt,Front Wheeled Walker Orthotic/Prosthetic Devices or Brace: No Gait Deviations General Gait Pattern Antalgic,Ataxic,Decreased Stride Length,Decreased Feet Clearance,Narrow Based Gait, Step-to Gait Factors Limiting Gait Function Factors Limiting Gait Function Decreased Activity Tolerance, Decreased Strength,Difficulty Following Directions, Incoordination,Limited Range of Motion,Pain,Poor Balance, Poor Safety Awareness Stair Climbing Assessment Evaluation Level of Assist On Stairs Maximal Assistance,1 Person Assistance,2 Person Assistance Devices Stair Climbing Assistive Devices Straight Cane Technique/Endurance Stair Climbing Direction Ascend and Descend Stair Climbing Technique Step to Step Number of Steps Climbed 1 Stair Climbing Set # Repetitions (reps) 2 M5 PT-IP Objective Assessments Start: 07/13/24 08:54 Freq: NEEDED Status: Active Protocol: Document 07/13/24 11:05 DLM (Rec: 07/13/24 12:27 DLM [id number]) Orientation Orientation/Cognition Level of Alertness Alert Orientation Name Safety Awareness Decreased Safety Awareness Memory Description Short Term Impaired Comments Decreased recall of safety information provided. She intermittently forgets she is in the hospital. Nursing reports she has pulled out her IV's and butler catheter. She had difficulty following verbal instructions for manual muscle testing Gross Range of Motion Upper Extremity ROM Assessment Within Functional Limits Lower Extremity ROM Assessment Within Functional Limits Impairments pain in right hip following KANE, extension and ER of hip not fully assessed to protect surgical site but is functional for mobility Left ankle Dorsiflexion range of motions is impaired actively and passively, she is -20 degrees from neutral dorsiflexion. Strength Upper Extremity Strength Assessment Within Functional Limits Lower Extremity Strength Assessment Right Impaired Hip flex 3/5 Knee ext 3+/5 Ankle DF 4+/5 Coordination Assessment Gross Coordination Gross Coordination Impaired Assessment Coordination Comments mild to moderate tremors, ataxic which is worse during gait Sensation Assessment Comments Sensation Comments she reports hx of numbness and tingling in feet at night, she reports none at this time Muscle Tone Muscle Tone WNL Yes M6 PT-IP Treatment Start: 07/13/24 08:54 Freq: NEEDED Status: Active Protocol: Document 07/14/24 09:50 AB (Rec: 07/14/24 12:59 AB [id number]) Physical Therapy Treatment Education Education Provided Safety M7 PT-IP Assessment and Plan Start: 07/13/24 08:54 Freq: NEEDED Status: Active Protocol: Document 07/14/24 09:50 AB (Rec: 07/14/24 12:59 AB [id number]) PT Summary Assessment and Plan Potential Rehabilitation Potential Fair Summary Impairments Pain,ROM,Strength,Balance, Coordination,Sensation,Tone, Cognition,Bed Mobility, Transfers,Gait,Activity Tolerance Progress Towards Goals Slow Progress due to Activity Tolerance,Slow Progress - Other Assessment Summary pt requiring mod to max A with mobility using FWW. caregiver training conducted and spouse was able to assist pt with transfers and ambulation. pt unable to safely complete stair climbing . recommending 2 PA to assist pt with steps or have a ramp installed or pt goes in using a w/c but will still require 2 PA. spouse aware of safety concerns. Goals Bed Mobility Goal Independent Transfer Goal Standby Assistance,Front Wheeled Walker Gait Goal Standby Assistance,Front Wheel Walker Gait Distance 150 feet Other Goals Up/down 2 steps with rail and cane with CG/SBA Days to Meet Goals 10 Frequency of Treatment Frequency Of Treatment Twice a Day Treatment Plan Physical Therapy Treatment Plan Bed Mobility Training,Transfer Training,Gait Training, Therapeutic Exercise,Balance Retraining,Post Op Education, Discharge Planning,Hot or Cold Pack,Neuromuscular Re-ed Precautions Other Precautions no hip precautions ordered following anterior KANE on right Chair and bed alarm due to high fall risk with confusion Weight Bearing Status Weight Bearing Status Weight Bear as Tolerated Allowed Weight Bearing Amount (enter % right LE with FWW or #) (%) Recommendations To Nursing Amount of Assist Needed 1 Person Assist Discharge Recommendations PT Discharge Recommendations SNF Rehab Transportation Needs at Discharge Private Vehicle,Wheelchair/ Cabulance - PT assist 1P
[2024-07-14] MEDS: MAGNESIUM CHLORIDE 64 MG TABLET 128 MG PO (10:09)
[2024-07-14] MEDS: POTASSIUM CHLORIDE 20 MEQ TAB 40 MEQ PO (10:42)
--- NOTE | 2024-07-14 11:19 | PM.PN.1 ---
Subjective Subjective Interval history: Jeniffer is a pleasant 78 year old female who is POD#2 s/p right Hybrid Fixation Direct Anterior Depuy Total Hip Arthroplasty with Uncemented Acetabular Component and Cemented Femoral Component for a Right femoral neck fracture by Dr. Olmedo. This morning patient reports he is doing well and is hopeful to go home today. She only has 2 steps at home, lives at home with and also has a son who lives nearby in [place]. Her son will be traveling up to [place] today. She was able to work w/ PT today and make good progress. She reports her pain is moderate but feels it has been well controlled. She denies any pain radiating down he leg just around the incision site. Worse w/ movement. Denies fever, chills, chest pain, SOB, nausea, vomiting. Nurse reports episode of confusion this AM. Exam Vital Signs (past 8 hours): - 07/14/24 07:07 07/14/24 07:57 07/14/24 08:30 Temperature 97.1 F L 97.6 F Pulse Rate 63 61 62 Respiratory Rate 14 14 Blood Pressure 158/57 H 160/62 H 160/63 H Pulse Oximetry 95 96 Oxygen Flow Rate 0 07/14/24 08:30 07/14/24 09:05 Temperature Pulse Rate 62 62 Respiratory Rate Blood Pressure Pulse Oximetry Oxygen Flow Rate Fraction of Inspired Oxygen 24 SaO2/FiO2 Ratio 395 Oxygen Delivery Method Room Air Oxygen Flow Rate 0 Narrative Exam Narrative: Patient lying comfortably in bed during our interview today. No acute distress. AOx3. Grossly normal alignment of the RLE. 5/5 strength with DF, PF, EHL bilaterally. Gross sensation intact throughout bilateral lower extremities. Calves soft and non-tender bilaterally. SCDs are on and functioning. Brisk capillary refill, pulses intact. Post-surgical Aquacel dressing intact over the right hip with moderate proximal drainage. Objective Labs 07/14/24 06:10 07/14/24 06:10 Labs: Laboratory Results - last 24 hr 07/14/24 06:10 WBC 7.5 RBC 2.56 L Hgb 8.2 L Hct 24.1 L MCV 94.2 MCH 32.1 MCHC 34.1 RDW 15.2 H Plt Count 120 L Neut % (Auto) 81.3 H Lymph % (Auto) 8.6 L [place] % (Auto) 9.1 Eos % (Auto) 0.6 L Baso % (Auto) 0.4 Neut # (Auto) 6100 Lymph # (Auto) 600 L [place] # (Auto) 700 Eos # (Auto) 0 Baso # (Auto) 0 Sodium 136 L Potassium 3.1 L Chloride 104 Carbon Dioxide 26 BUN 9 Creatinine 0.63 Estimated GFR > 60 BUN/Creatinine Ratio 14.3 Glucose 93 Calcium 8.5 Magnesium 1.6 PFS Medical History Uncontrolled hypertension Encounter for initial annual wellness visit (AWV) in Medicare patient Normocytic anemia Hyperlipidemia Tobacco dependence Benign essential HTN Measles Cataracts, bilateral (~2015) Family History Father Cancer Social History household members: spouse Smoking Status: Current every day smoker alcohol intake: current Assessment & Plan Assessment and plan (1) Right femoral fracture: Problem details: GLF resulting in R femoral Fracture Transcervical vs Intertrochanteric Fracture of R femur, with mild angulation Ortho Dr Verduzco Consulted Surgery planned for early childhood education specialist NPO after mn as advised per Ortho [facility] Pain control [place] q 4 h prn Dilaudid 0.5 mg IV q 3 hrs prn Keep O2 sats > 93% SCDS Ho;ld Pharmacologic DVT px given surgery in the morning PT / OT consult Qualifiers: Encounter type: initial encounter Femur location: intertrochanteric Fracture type: closed Fracture alignment: nondisplaced Qualified Code(s): S72.144A - Nondisplaced intertrochanteric fracture of right femur, initial encounter for closed fracture Status: Acute Plan 1) Discharge disposition per Medicine. 2) Continue multimodal pain management with ice to the hip for additional pain control. 3) recommend ASA b.i.d. for DVT prophylaxis upon discharge. 4) Start outpatient physical therapy to work on range of motion and mobility. Weightbearing as tolerated, no hip precautions. 5) Keep dressing intact, clean, dry until 2 week postop appointment. No soaking the incision site in pools or tubs. No topical ointments or creams to the incision site. 6) Follow up at [facility] orthopedics in 2 weeks for a postop appointment and wound check. All patient's questions were answered, they demonstrates understanding and are in agreement with the plan. Call our office if any questions or concerns arise. Detailed postoperative instructions available at [email or web address] Time-Based Coding :: [TOTAL MINUTES] spent with patient and on the chart (including review of chart, obtaining history, exam, reviewing outside data, placing orders, documenting exam and treatment plan, and counseling patient) on [DATE]. Quality VTE Deep Vein Thrombosis/Pulmonary Embolism Present on Admission: No
[2024-07-14 11:26] VITALS: BP 135/55; PULSE 62; RESP 14; TEMP 36.6; O2SAT 98
--- NOTE | 2024-07-14 11:53 | OT.IP.TRT ---
Current Diagnoses Mixed hyperlipidemia (07/10/24) Essential (primary) hypertension (07/10/24) Fracture of unspecified part of neck of right femur, initial encounter for closed fracture (07/10/24) Nondisplaced intertrochanteric fracture of right femur, initial encounter for closed fracture (07/10/24) Surgery Performed Operation Date: 07/12/24 12:30 Actual Procedures p Total Hip Arthroplasty/Anterior Approach(Right) - Pierre Olmedo MD Occupational Therapy Treatment Note M2 OT-IP Current Condition Start: 07/13/24 12:26 Freq: Status: Active Protocol: Document 07/13/24 12:26 [facility] (Rec: 07/13/24 12:48 [facility] [id number]) Occupational Therapy Current Condition Current Condition Evaluation Date 07/13/24 Treatment Diagnosis fall S/P R KANE Diagnosis Onset Date 07/10/24 Post Operative Precautions Other Precautions Pt has no hip precautions. M3 OT- IP Subjective and Pain Start: 07/13/24 12:26 Freq: Status: Active Protocol: Document 07/14/24 12:50 [facility] (Rec: 07/14/24 12:59 [facility] [id number]) OT- Subjective Occupational Therapy Visit Type Type Treatment Note Visit Start Time 11:30 Visit Stop Time 11:53 Occupational Therapy Visit Comments Patient Comments Pt agreed to do caregiver training for ADL needs with her . Patient/Caregiver Goals TO go home. OT Pain Assessment Pain When Pain Assessed At Rest Pain Present Pain Present Denied Pain M4 OT- IP ADL's Start: 07/13/24 12:26 Freq: Status: Active Protocol: Document 07/14/24 12:50 [facility] (Rec: 07/14/24 12:59 [facility] [id number]) OT [id number] Comments OT Self-Feeding Comments Not at meal time. OT ADL-Grooming General Evaluation Grooming Ability Minimal Assistance Areas Needing Assistance Combing/Brushing Hair Comments OT Grooming Comments [place] for completeness to comb her hair. OT ADL-Oral Care Comments Oral Care Comments Not performed. OT ADL-Dressing General Eval Lower Body Dressing Ability Maximum Assistance Areas Needing Assistance Underpants/Brief,Socks Comments OT Dressing Comments MAX AX to assist to her socks and brief. Educated pt's to be mindful of his body mechanics when assisting her. OT ADL-Toileting General Evaluation Toileting Ability Moderate Assistance Areas Needing Assistance Manage Clothing Comments OT Toileting Comments Pt's able to independently assist tp for toileting needs. Pt needing cues to thoroughly wipe and to wipe from front to back. Pt will benefit from pads/pull up brief at night and that her will have to get up to assist her. OT ADL-Bathing Comments OT Bathing Comments Not performed. Pt would benefit from assist for showers and bath aid would be helpful. M5 OT- IP IADL's Start: 07/13/24 12:26 Freq: Status: Active Protocol: Document 07/13/24 12:26 [facility] (Rec: 07/13/24 12:48 [facility] [id number]) OT-Instrumental Activities of Daily Living Home Safety Awareness Home Safety Comments Pt is a bit confused at this time. Medication Management Medication Management Caregiver Administers Money Management Money Management Caregiver Provides Assistance Meal Preparation Meal Preparation Caregiver Provides Assist Composition Board Press Operator Composition Board Press Operator Caregiver Provides Assist M6 OT- IP Functional Cognition Start: 07/13/24 12:26 Freq: Status: Active Protocol: Document 07/14/24 12:50 [facility] (Rec: 07/14/24 12:59 [facility] [id number]) Cognitive Factors Limiting Selfcare Function Cognitive Ability Level of Alertness Alert Attention Span Ability Capable of Focused Attention, Unable to Sustain Attention Ability to Follow Commands Able to Follow One Step Commands with Increased Time, Able to Follow One Step Commands with Repetition Cognitive Comments Cognitive Assessment Comments Pt thinking better but needing step by step commands to follow. Pt is a bit impulsive but her able to educated her to slow down and give safety cues appropriately . M7 OT- IP Mobility and Balance Start: 07/13/24 12:26 Freq: Status: Active Protocol: Document 07/14/24 12:50 [facility] (Rec: 07/14/24 12:59 [facility] [id number]) OT-Transfer Assessment Sit to and From Stand Sit to and from Stand Minimal Assistance Transfers Transfer Ability Minimal Assistance Technique Transfer Destination Bed,Chair,Toilet Devices Transfer Assistive Devices Gait Belt,Front Wheeled Walker Comments Mobility Comments P's able to assist pt to get to the edge of the bed , stand and walk to the bathroom safely. Pt having better control on her LLE today but still needing cues to keep her feet apart. OT- Balance Assessment Sitting Balance and Reactions Static Sitting Balance Ability Normal Dynamic Sitting Balance Ability Good Standing Balance and Reactions Static Standing Balance Ability Fair Dynamic Standing Balance Ability Poor M8 OT- IP Objective Assessments Start: 07/13/24 12:26 Freq: Status: Active Protocol: Document 07/13/24 12:26 [facility] (Rec: 07/13/24 12:48 [facility] [id number]) OT Gross Range of Motion Upper Extremity Range of Motion Assessment Within Functional Limits ROM Impairments Except R index finger. Right index finger per pt cut 20+ years ago and did not get it fixed and therefore deformed and decreased AROM OT Strength Upper Extremity Strength Assessment Within Functional Limits OT- Coordination Assessment Upper Extremity Finger to Nose Test Within Functional Limits M9 OT- IP Assessment and Plan Start: 07/13/24 12:26 Freq: Status: Active Protocol: Document 07/14/24 12:50 [facility] (Rec: 07/14/24 12:59 [facility] [id number]) OT Summary Assessment and Plan Potential Rehabilitation Potential Good Analytic Complexity at Evaluation Moderate Summary OT Impairments Pain,Range of Motion,Strength, Balance,Functional Cognition, Functional Mobility,Self- Feeding,Grooming,Dressing, Toileting,Bathing,Toilet Transfers,Shower Transfers, Activity Tolerance Progress Towards Goals Progressing Toward Goals Assessment Summary Pt's able to assist pt safely for gait belt management, toileting,dressing , and transfers needs during caregiver training. Pt's feels confident and safe to assist pt . Pt will benefit from home health and bath aid. Goals Self-Feeding Goal Independent Grooming Goal Independent Dressing Goal Minimal Assistance Toileting Goal Standby Assistance Bathing Goal Minimal Assistance Toilet Transfer Goal Standby Assistance Shower Transfer Goal Contact Guard Assistance Days to Meet Goals 15 Frequency of Treatment Other frequency 5x/week Treatment Plan OT Treatment Plan ADL Training,Functional Cognition Training,Functional Mobility,Patient/Family Education,Discharge Planning Discharge Recommendations OT Discharge Recommendations Home with / Assist Available,Home Health Transportation Needs at Discharge Private Vehicle
--- NOTE | 2024-07-14 13:26 | PM.DS.1 ---
History of Present Illness History of Present Illness Date Patient Seen: 07/14/24 Time Patient Seen: 13:26 Date of Onset of Symptoms: 07/10/24 Chief complaint: GLF, right hip pain Narrative: Per admitting provider, 78 y/o F, with h/o HTN, HLD, GERD, was in her usual state of health, not on blood thinners, had a fall today , this afternoon, after she had fed her dog, she was trying to reach the recycling bin,m and she tripped on the kitchen mat by the sink. She fell on her R side, did not hit her head, and remained conscious through out. Noted R hip pain and unable to bear wt on her R hip. Denies CP, SOB, Abd Pain, Dysuria, F/C, cough, light headedness or syncope. Denies h/o AL, Stroke, CHF, DM or PE Her son with whom pt has been staying , called EMS, and pt transported to ED. In ED, had SBP up at 193, rest of Vitals were stable R Hip XR: Trans cervical vs Intratrochanteric fracture of R femur with mild angulation Labs indicate chronic anemia HH 11.3/33.8 Rest of lab unremarkable Dr Verduzco / Ortho was consulted per ED Provider, and plan is NPO after mn, for surgery on R hip uin the morning. Pt recd Fentanyl enroute, and in ED one dose of Morphine and one dose of IV dilaudid. She was referred to Hospitalist team for admission. Discharge Providers Provider Date of admission: 07/10/24 21:22 Discharge Date: 07/14/24 Primary care physician: Glendy Bourne DO Consults: 07/10/24 19:25 Consult to Orthopedic Surgery Stat Comment: Consulting Provider: Dyan Verduzco Reason for consultation: hip fx Has provider been notified: Yes 07/12/24 15:57 Consult to Discharge Planning Routine Comment: Consult to Occupational Therapy Evaluate & Treat Comment: Physician Instructions: Evaluate and treat Consult to Physical Therapy Evaluate & Treat Comment: Physician Instructions: post op KANE protocol Discharge provider: Trino Richard DO Summary Hospital Course Discharge Diagnosis: 1. Closed hip fracture (right), present on admission and active, pathologic secondary to osteoporosis. 2. Uncontrolled hypertension, present on admission and active. 3. Hyperlipidemia, present on admission and stable. 4. Possible acute hypoxic respiratory failure, ruled out / resolved 5. Acute blood loss anemia due to surgery, stable 6. Acute hospital delirium, possible alcohol withdrawal Hospital Course: This is a 78-year-old female with a past medical history of hypertension, hyperlipidemia who was admitted after a fall with a right hip fracture. She underwent operative interventions with Orthopedic surgery. Initially her course was complicated by pain control difficulties which did improve with medication adjustments. On the morning prior to discharge, her course was also noted to have an episode of either hospital delirium or possible alcohol withdrawal, however the patient denied any alcohol use recently. For her delirium, multiple medications were attempted but she did not need wrist restraints for a brief period of time. Later that morning, however she was completely alert and oriented, and did quite well with physical therapy with controlled pain. Her blood pressure was noted to be controlled at that time, and on discharge she was on olmesartan, metoprolol, and amlodipine. She was recommended for group home initially, but did well enough with therapy they thought it would be safe for her to go home with assistance. I discussed continued monitoring here in the hospital versus discharge home given her recent delirium, however the patient and spouse elected for discharge home with home health after a risk benefit discussion. Given that her delirium was more likely due to her hospitalization, poor sleep, this will likely improve at home rather than continued hospitalization. She did not have any further evidence of alcohol withdrawal including tremulousness, tachycardia. Her hemoglobin dropped to the eights after surgery, but was stable, and she had no evidence of active bleeding at the time of discharge. She was asymptomatic and denied dizziness, fatigue, or shortness of breath. Recommend outpatient follow-up with Orthopedic surgery, as well as primary care provider as previously scheduled after discharge. Time Spent with Patient Time spent: Greater than 30 minutes Exam Vital Signs (past 8 hours): - 07/14/24 07:07 07/14/24 07:57 07/14/24 08:30 Temperature 97.1 F L 97.6 F Pulse Rate 63 61 62 Respiratory Rate 14 14 Blood Pressure 158/57 H 160/62 H 160/63 H Pulse Oximetry 95 96 Oxygen Flow Rate 0 07/14/24 08:30 07/14/24 09:05 07/14/24 11:26 Temperature 97.8 F Pulse Rate 62 62 62 Respiratory Rate 14 Blood Pressure 135/55 L Pulse Oximetry 98 Oxygen Flow Rate Fraction of Inspired Oxygen 24 SaO2/FiO2 Ratio 395 Oxygen Delivery Method Room Air Oxygen Flow Rate 0 Narrative Exam Narrative: NAD, alert and oriented. Fluent speech. Lungs are clear, normal rate and effort. Heart is regular, no murmur gallop or rub. Abdomen is soft, non distended. Extremities are free of edema. Objective Labs 07/14/24 06:10 07/14/24 06:10 Labs: Laboratory Results - last 24 hr 07/14/24 06:10 WBC 7.5 RBC 2.56 L Hgb 8.2 L Hct 24.1 L MCV 94.2 MCH 32.1 MCHC 34.1 RDW 15.2 H Plt Count 120 L Neut % (Auto) 81.3 H Lymph % (Auto) 8.6 L [place] % (Auto) 9.1 Eos % (Auto) 0.6 L Baso % (Auto) 0.4 Neut # (Auto) 6100 Lymph # (Auto) 600 L [place] # (Auto) 700 Eos # (Auto) 0 Baso # (Auto) 0 Sodium 136 L Potassium 3.1 L Chloride 104 Carbon Dioxide 26 BUN 9 Creatinine 0.63 Estimated GFR > 60 BUN/Creatinine Ratio 14.3 Glucose 93 Calcium 8.5 Magnesium 1.6 PFSH Medical History Uncontrolled hypertension Encounter for initial annual wellness visit (AWV) in Medicare patient Normocytic anemia Hyperlipidemia Tobacco dependence Benign essential HTN Measles Cataracts, bilateral (~2015) Family History Father Cancer Social History household members: spouse Smoking Status: Current every day smoker alcohol intake: current Discharge Plan Discharge Plan Patient Disposition: Home Health Service Provider Discharge Comment: You were admitted to the hospital with a hip fracture. You had surgery with orthopedics, and are now stable for discharge home. Home health referral was placed. Continue pain control as needed. Follow up with orthopedic surgery as directed by their team. 4) Start outpatient physical therapy to work on range of motion and mobility. Weightbearing as tolerated, no hip precautions. 5) Keep dressing intact, clean, dry until 2 week postop appointment. No soaking the incision site in pools or tubs. No topical ointments or creams to the incision site. 6) Follow up at [facility] orthopedics in 2 weeks for a postop appointment and wound check. Discharge orders & Medications Prescriptions: New acetaminophen 325 mg Tablet 650 mg PO Q6H Qty: 30 0RF hydrocodone-acetaminophen 5-325 mg Tablet 1 tab PO Q4HR PRN (Reason: Pain, Moderate (4-6)) 7 Days Qty: 20 0RF aspirin 81 mg Tablet,Delayed Release (Dr/Ec) 81 mg PO BID 42 Days Qty: 84 0RF Continued metoprolol succinate 100 mg tablet extended release 24 hr 100 mg PO BID Qty: 180 3RF terazosin 2 mg capsule 2 mg PO DAILY Qty: 90 3RF amlodipine 10 mg tablet 10 mg PO DAILY Qty: 90 3RF atorvastatin 40 mg tablet 40 mg PO DAILY olmesartan 40 mg tablet 40 mg PO DAILY Follow up/Referrals: Glendy Bourne DO [Primary Care Provider] - Diet/Activity/Treatments Diet: Diet as Tolerated and Regular Activity: As tolerated Visit Report/Discharge Packet Instructions: DI for Hip Replacement, How to Prevent Falls Stand Alone Forms: Stroke Signs & Symptoms, Patient Portal/API/Survey, Surgery Discharge Discharge Data Primary Care Provider: Glendy Bourne Quality VTE Deep Vein Thrombosis/Pulmonary Embolism Present on Admission: No
--- NOTE | 2024-07-14 13:37 | CM.DPNOTE ---
DCP Cont Spouse would like to take patient home today. Therapies continue to recommend SNF. Met w/patient who is alert and oriented. Discussed plan for return home; suggested a referral to HH and patient politely declines, says she will be going to outpatient PT. Plan: Discharge home later today with sp. Sp to transport. Updated Anju at . JW
--- NOTE | 2024-07-14 15:34 | PC.NURSE ---
Day shift: Paperwork signed and all questions answered. Encouraged them to f/u with PCP and ortho. Dressing changed per ortho instructions. CMS remains intact. PPP as well. Left ACU at approx 1515 via WC. Her Spouse is driving them home and they live local. Pt did well getting into car. This technical proposal writer is the person who took them to their car and helped. Pt also remains A&Ox4 and has been calm and cooperative.
== END 2024-07-14 15:15 | disposition home or self-care (01) | DRG 522 ==
LOC: ED 20:34 → AC 21:23
PROVIDERS: Internal Medicine; Orthopaedic Surgery Adult Reconstructive Orthopaedic Surgery; Admitting Provider Hospitalist; Emergency Provider Emergency Medicine; PCP Family Medicine; Referring Provider Emergency Medicine; Visit Provider Hospitalist
PROC: 0SR9039 Replacement of Right Hip Joint with Ceramic Synthetic Substitute, Cemented, Open Approach (ICD-10-PCS; CPT 27130; principal; 2024-07-12 12:30)
DX: M80.051A Age-related osteoporosis with current pathological fracture, right femur, initial encounter for fracture (principal); F10.239 Alcohol dependence with withdrawal, unspecified; D62 Acute posthemorrhagic anemia; F05 Delirium due to known physiological condition; I10 Essential (primary) hypertension; E78.2 Mixed hyperlipidemia; F17.200 Nicotine dependence, unspecified, uncomplicated
CPT/HCPCS: 36415; 71045; 73502; 76000; 80048; 80053; 81001; 83735; 85025; 85610; 86850; 86900; 86901; 87077; 87086; 87186; 93005; 94762; 96374; 96375; 97162; 97166; 97530; 97535; 99284; C1776; A9270; C1713; J0131; J0690; J1100; J1171; J1630; J1644; J2270; J2405; J2704; J3010; P9045

== ENCOUNTER → 2024-08-08 11:36 | Outpatient (CLI) | payer MEDICARE, OTHER, SELFPAY ==
[2024-07-10 22:00] VITALS: BMI 17.9
[2024-08-08 12:42] LABS: Hematocrit 31.2 % (36-46); Hemoglobin 10.4 g/dL (12.0-16.0); Mean Corpuscular HGB Conc 33.4 % (30-36); Mean Corpuscular Hemoglobin 31.4 PG (26-34); Mean Corpuscular Volume 94.2 fL (80-100); Platelet Count 290 X10^3/uL (150-400); Red Blood Cell Count 3.31 X10^6/uL (4.0-5.2); Red Cell Distribution Width 15.2 % (11.6-14.8); White Blood Cell Count 9.4 X10^3/uL (4.5-11.0)
[2024-08-08 13:14] LABS: Alanine Aminotransferase 27 IU/L (<35); Albumin 4.3 g/dL (3.5-5.0); Albumin Globulin Ratio 1.2 (1.0-2.8); Alkaline Phosphatase 76 U/L (38-126); Aspartate Aminotransferase 32 IU/L (14-36); BUN Creatinine Ratio 32.7 (6-22); Bilirubin Total 0.3 mg/dL (0.2-1.3); Blood Urea Nitrogen 37 mg/dL (7-17); Calcium 9.4 mg/dL (8.4-10.2); Carbon Dioxide 20 mmol/L (22-32); Chloride 109 mmol/L (98-107); Cholesterol 143 mg/dL (140-199); Estimated Glomerular Filt Rate 50 mL/min (>60); Globulin 3.5 g/dL (1.7-4.1); Glucose 92 mg/dL (80-110); HDL Cholesterol 33 mg/dL (40-60); HEMOLYSIS < 15 (0-50); LDL Cholesterol Calculated 72 mg/dL (<100); Potassium 3.9 mmol/L (3.4-5.1); Sodium 140 mmol/L (137-145); Total Protein 7.8 g/dL (6.3-8.2); Triglycerides 189 mg/dL (35-150)
[2024-08-08 16:54] LABS: Hep C Virus Ab w/Reflex Quant NEGATIVE s/c (NEGATIVE)
== END ==
PROVIDERS: PCP Family Medicine; Referring Provider Family Medicine; Visit Provider Family Medicine
DX: Z00.00 Encounter for general adult medical examination without abnormal findings (principal); D64.9 Anemia, unspecified; E78.5 Hyperlipidemia, unspecified; S72.91XA Unspecified fracture of right femur, initial encounter for closed fracture; E87.6 Hypokalemia; Y92.009 Unspecified place in unspecified non-institutional (private) residence as the place of occurrence of the external cause; W19.XXXA Unspecified fall, initial encounter; I10 Essential (primary) hypertension
CPT/HCPCS: 36415; 80053; 80061; 85027; 86803

== ENCOUNTER → 2024-08-10 11:12 | Outpatient (CLI) | payer MEDICARE, OTHER, SELFPAY ==
[2024-07-10 22:00] VITALS: BMI 17.9
--- NOTE | 2024-08-10 11:13 | DI.RAD.S_ITS ---
PROCEDURE: XR DEXA AXIAL SKELETON INDICATIONS: screening COMPARISON: None. FINDINGS: Lumbar Spine: Bone mineral density 0.918 g/cm2, T score -1.2. Left Femoral Neck: Bone mineral density 0.514 g/cm2, T score -3.0. Left Hip: Bone mineral density 0.609 g/cm2, T score -2.7. Fracture Risk Calculation (when applicable): 10-year fracture risk of a major osteoporotic fracture 28 percent and of a hip fracture 15 percent. (T score greater or equal to -1.0 to: NORMAL) (T score from -1.1 to -2.4: OSTEOPENIA) (T score less than or equal to -2.5: OSTEOPOROSIS) IMPRESSION: Osteoporosis Follow-up guidelines as follows: Osteoporosis: Consider a repeat DEXA and Vertebral Fracture Assessment (VFA) exam in 2 years or sooner if medically necessary, to reassess this patient's status. Osteopenia: Consider a repeat DEXA in 2-3 years to reassess this patient's status, or if there is a new clinical indication. Normal: Consider a repeat DEXA in 5 years or sooner, or if there is a new clinical indication. All treatment decisions require clinical judgment and consideration of individual patient factors, including patient preferences, comorbidities, previous drug use, risk factors not captured in the FRAX model (e.g., frailty, falls, vitamin D deficiency, increased bone turnover, interval significant decline in bone density ) and possible under- or over-estimation of fracture risk by FRAX. In addition, the NOF Guide recommends that FDA-approved medical therapies be considered in postmenopausal women and men age >= 50 years with a: * Hip or vertebral (clinical or morphometric) fracture * T-score of <=-2.5 at the spine or hip * Ten-year fracture probability by FRAX of >= 3% for hip fracture or >=20% for major osteoporotic fracture. Approved by: Melissa Bond M.D.,Ph.D. on 08/10/2024 at 16:28
== END ==
PROVIDERS: PCP Family Medicine; Referring Provider Family Medicine; Visit Provider Family Medicine
DX: M81.0 Age-related osteoporosis without current pathological fracture (principal); S72.91XA Unspecified fracture of right femur, initial encounter for closed fracture; D64.9 Anemia, unspecified; E87.6 Hypokalemia
CPT/HCPCS: 77080

== ENCOUNTER → 2025-01-10 15:52 | Outpatient (CLI) | payer MEDICARE, OTHER, SELFPAY ==
[2025-01-02 10:50] VITALS: BMI 17.9
--- NOTE | 2025-01-10 15:55 | DI.ECHO.S_ITS ---
[facility]+ [facility] : : [address] : : [place] : : [id number] : : Phone: [phone] Echocardiogram Report + + :Name: JACINTO MABRY V Study Date: 01/10/2025 Height: 63 in : :[facility] ReadingLocation: Weight: 113 lb : : Gender: Female BSA: 1.5 m2 : :: 1945 Age: 79 yrs BP: 138/74 mmHg: :Reason For Study: HTN : :Ordering Physician: PERNELL DOMINIQUE Performed By: Alan Pennington : :Referring: PERNELL DOMINIQUE : + + Interpretation Summary - Normal LV contractility with EF > 55%. No WMA. No LVH. Grade 2 diastolic dysfunction. - Normal RV contractility. - Mild ELIZABETH. - Trace to mild MR - Mild PI. - No obvious intracardiac shunts. - No obvious intracardiac masses/thrombi. - No hemodynamically significant pericardial effusion. - Low right sided filling pressures. Conclusion: Normal biventricular systolic function with moderate diastolic dysfunction. Trace to mild valvular insufficiencies. Procedure: A two-dimensional transthoracic echocardiogram with color flow and Doppler was performed. The study quality was technically adequate. There is no prior echocardiogram noted for this patient. The patient was in normal sinus rhythm during the exam. Left Ventricle: The left ventricle is normal in size and wall thickness. Left ventricular systolic function is normal. The ejection fraction is estimated to be 55-60%. There are no focal wall motion abnormalities. Grade II diastolic dysfunction with elevated left atrial pressure. Right Ventricle: The right ventricle is normal in size and function. Atria: The left atrium is mildly dilated. The right atrium is mildly dilated. There is no Doppler evidence for an interatrial shunt. Mitral Valve: The mitral valve leaflets appear to open well. There is no mitral valve stenosis. There is trace mitral regurgitation. Aortic Valve: The aortic valve is trileaflet. The aortic valve opens well. There is no aortic valve stenosis. No aortic regurgitation is present. Tricuspid Valve: The tricuspid valve leaflets are thin and pliable. There is trace tricuspid regurgitation. The right ventricular systolic pressure is estimated to be at least 35 mmHg based on an estimated right atrial pressure of 3 mm Hg. Pulmonic Valve: The pulmonic valve is not well seen, but is grossly normal. There is mild pulmonic regurgitation. Great Vessels: The aortic root is normal size. The ascending aorta is normal in size. The aortic arch could not be visualized. The IVC is of normal diameter and collapses greater than 50% with a sniff. This suggests a low right atrial pressure of 3 mm Hg. Pericardium/ Pleura There is no pericardial effusion. MMode/2D Measurements & Calculations LVIDd: 4.6 cm LVOT diam: 1.9 cm LVIDs: 3.0 cm Ao root diam: 2.8 cm FS: 36.1 % asc Aorta Diam: 3.0 cm IVSd: 0.93 cm LVPWd: 0.95 cm LV juarez. diameter/BSA (cm/m^2): 3.1 LV sys. diameter/BSA (cm/m^2): 2.0 LA A2 area: 20.3 cm2 RA long axis: 5.2 cm LA A4 area: 18.8 cm2 RA area: 15.8 cm2 LA length (vol): 5.7 cm RA vol: 40.7 ml LA vol: 57.5 ml RA : 26.9 ml/m2 LA vol index: 37.9 ml/m2 IVC diam: 1.5 cm RVD1 (basal): 3.3 cm RVD2 (mid): 2.5 cm TAPSE: 2.9 cm Doppler Measurements & Calculations Ao V2 max: 138.6 cm/sec LVOT Max Jono: 101.8 cm/sec Ao V2 mean: 100.3 cm/sec LV V1 max P.1 mmHg Ao max P.7 mmHg LV V1 VTI: 25.4 cm Ao mean P.4 mmHg WILLIAM(I,D): 2.2 cm2 Ao V2 VTI: 33.5 cm WILLIAM(V,D): 2.2 cm2 sev ratio: 0.76 WILLIAM indexed to BSA (cm^2/m^2): 1.5 MV E max jono: 121.9 cm/sec TR max jono: 280.9 cm/sec MV A max jono: 88.6 cm/sec TR max P.6 mmHg MV E/A: 1.4 PA V2 max: 96.2 cm/sec Med Peak E' Jono: 7.0 cm/sec PA V2 mean: 72.5 cm/sec E/E' med: 17.5 PA mean P.3 mmHg Lat Peak E' Jono: 6.1 cm/sec PA pr(Accel): 13.9 mmHg E/E' lat: 19.9 E/e' average: 18.7 MV dec time: 0.21 sec [facility] 74.9 ml Reading Physician:SHAR
== END ==
LOC: ECHO 15:54
PROVIDERS: PCP Family Medicine; Referring Provider Family Medicine; Visit Provider Family Medicine
DX: Z00.00 Encounter for general adult medical examination without abnormal findings (principal); I37.1 Nonrheumatic pulmonary valve insufficiency; I10 Essential (primary) hypertension; E78.2 Mixed hyperlipidemia; R01.1 Cardiac murmur, unspecified; F17.200 Nicotine dependence, unspecified, uncomplicated
CPT/HCPCS: 93306

== ENCOUNTER → 2025-02-01 13:53 | Outpatient (CLI) | payer MEDICARE, OTHER, SELFPAY ==
[2025-01-02 10:50] VITALS: BMI 17.9
[2025-02-01 14:26] LABS: Hematocrit 33.5 % (36-46); Hemoglobin 11.5 g/dL (12.0-16.0); Mean Corpuscular HGB Conc 34.3 % (30-36); Mean Corpuscular Hemoglobin 32.7 PG (26-34); Mean Corpuscular Volume 95.3 fL (80-100); Platelet Count 152 X10^3/uL (150-400)
[2025-02-01 20:33] LABS: Alanine Aminotransferase 15 IU/L (<35); Albumin 3.9 g/dL (3.5-5.0); Albumin Globulin Ratio 1.2 (1.0-2.8); Alkaline Phosphatase 90 U/L (38-126); Blood Urea Nitrogen 25 mg/dL (7-17); Calcium 8.9 mg/dL (8.4-10.2); Carbon Dioxide 27 mmol/L (22-32); Chloride 100 mmol/L (98-107); Cholesterol 200 mg/dL (140-199); Estimated Glomerular Filt Rate > 60 mL/min (>60); Globulin 3.3 g/dL (1.7-4.1); Glucose 94 mg/dL (70-99); HDL Cholesterol 74 mg/dL (40-60); HEMOLYSIS < 15 (0-50); Potassium 3.9 mmol/L (3.4-5.1); Sodium 136 mmol/L (137-145); Total Protein 7.2 g/dL (6.3-8.2); Triglycerides 122 mg/dL (35-150)
[2025-02-01 20:42] LABS: NT-proBNP (BNP-Adult 18+) 723 pg/mL (<450)
== END ==
PROVIDERS: PCP Family Medicine; Referring Provider Family Medicine; Visit Provider Family Medicine
DX: Z00.00 Encounter for general adult medical examination without abnormal findings (principal); I10 Essential (primary) hypertension; R01.1 Cardiac murmur, unspecified; F17.200 Nicotine dependence, unspecified, uncomplicated; E78.2 Mixed hyperlipidemia; M79.89 Other specified soft tissue disorders
CPT/HCPCS: 36415; 80053; 80061; 83880; 85027

== ENCOUNTER → 2025-02-07 11:34 | Outpatient (CLI) | payer MEDICARE, OTHER, SELFPAY ==
[2025-01-02 10:50] VITALS: BMI 17.9
[2025-02-07 13:15] LABS: Alanine Aminotransferase 15 IU/L (<35); Albumin 4.2 g/dL (3.5-5.0); Albumin Globulin Ratio 1.2 (1.0-2.8); Alkaline Phosphatase 89 U/L (38-126); Blood Urea Nitrogen 19 mg/dL (7-17); Calcium 9.3 mg/dL (8.4-10.2); Carbon Dioxide 28 mmol/L (22-32); Chloride 102 mmol/L (98-107); Creatine Kinase 64 U/L (30-135); Estimated Glomerular Filt Rate > 60 mL/min (>60); Globulin 3.6 g/dL (1.7-4.1); Glucose 83 mg/dL (70-99); HEMOLYSIS < 15 (0-50); Potassium 4.9 mmol/L (3.4-5.1); Sodium 140 mmol/L (137-145); Total Protein 7.8 g/dL (6.3-8.2)
== END ==
PROVIDERS: PCP Family Medicine; Referring Provider Family Medicine; Visit Provider Family Medicine
DX: M79.10 Myalgia, unspecified site (principal); M80.00XD Age-related osteoporosis with current pathological fracture, unspecified site, subsequent encounter for fracture with routine healing; I10 Essential (primary) hypertension; E78.2 Mixed hyperlipidemia
CPT/HCPCS: 36415; 80053; 82550; 85651; 86140

== ENCOUNTER → 2025-03-09 11:47 | Outpatient (CLI) | payer MEDICARE, OTHER, SELFPAY ==
[2025-01-02 10:50] VITALS: BMI 17.9
--- NOTE | 2025-03-09 11:49 | DI.RAD.S_ITS ---
PROCEDURE: XR SHOULDER RT MIN 2V
== END ==
LOC: RAD 11:49
PROVIDERS: PCP Family Medicine; Referring Provider Family Medicine; Visit Provider Family Medicine
DX: M25.511 Pain in right shoulder (principal)
CPT/HCPCS: 73030